=== PATIENT | female | born 1945 | race Caucasian/White ===

== ENCOUNTER → 2016-04-12 | Outpatient (CLI) | payer OTHER ==
[~2016-04-12] MED LIST: ADVAIR DISKUS; ALBU17IN INH; ASPIRIN PO; COUM2.5T11 PO; ECOT81TA2 PO; FENO160T10 PO; FENOFIBRATE PO; HYDR-3565 PO; LEVO175T2 PO; LEVOTHYROXINE PO; LISI40TAB PO; LISIPOW PO; LYRI75CA PO; MONT10TA2 PO; MONTELUKAST SOD PO; PAME10CA PO; PERCOCET PO; PRAV40TA2 PO; PRAVASTATIN PO; SYMB16INH INH; TYLE325T5 PO; VENTOLIN INHALER INH; VITA-130 PO; VITA100T20 PO
--- NOTE | 2016-04-12 14:30 | REP ---
Three-phase bone scan of the hips. History: Artificial hip joint on the right question loosening. Pain in the right hip radiating into the thigh. Comparison study is from June 10, 2009. Technique: 21.7 mCi technetium 99m MDP is injected and standard three-phase imaging was acquired. Scintigraphic findings: Anterior and posterior flow study is normal. Blood pool images show no area of regional hyperemia in or about either hip. Photopenia is seen from the right hip prosthetic components as before. Delayed scan images demonstrate this same photopenia in the right femoral head and subtrochanteric femur post hip replacement. There is no scintigraphic evidence to suggest loosening or infection. Signed by Osman Montoya MD 04/12/2016 02:21 P
== END | disposition home or self-care (01) ==
LOC: M RAD 10:40
PROVIDERS: ATTEND Orthopaedic Surgery
DX: Z96.641 Presence of right artificial hip joint (principal)
CPT/HCPCS: 78315; A9503

== ENCOUNTER → 2016-05-30 | Outpatient (CLI) | payer OTHER ==
[~2016-05-30] MED LIST changes: -ECOT81TA2 PO; +ECOT81TA5 PO; -HYDR-3565 PO; +HYDR-3719 PO
== END ==
LOC: M CARPUL 09:28
PROVIDERS: ATTEND Family Medicine
DX: J45.909 Unspecified asthma, uncomplicated (principal)

== ENCOUNTER → 2017-07-24 | Outpatient (REF) | payer OTHER ==
[2017-07-24 12:07] LABS: BASO # 0.1 10^3/uL (0.0-0.2); BASO % 1.3 % (0.0-1.0); EOS # 0.5 10^3/uL (0.0-0.50); EOS % 7.3 % (0.0-3.0); HEMATOCRIT 41.7 % (36.0-47.0); HEMOGLOBIN 13.8 g/dl (12.0-15.5); IMMATURE GRANULOCYTE % 0.1 % (0-3.0); LYMPH % 29.6 % (24.0-44.0); MEAN CORPUSCULAR HEMOGLOBIN 29.4 pg (27.0-33.0); MEAN CORPUSCULAR HGB CONC 33.1 g/dl (32.0-36.5); MEAN CORPUSCULAR VOLUME 88.9 fl (80.0-96.0); MONO # 0.7 10^3/uL (0.0-0.8); NEUTROPHILS # 3.5 10^3/uL (1.8-7.7); NEUTROPHILS % 51.7 % (36.0-66.0); PLATELET COUNT, AUTOMATED 331 10^3/uL (150-450); RED BLOOD COUNT 4.69 10^6/uL (4.00-5.40); RED CELL DISTRIBUTION WIDTH 11.9 % (11.5-14.5); WHITE BLOOD COUNT 6.7 10^3/uL (4.0-10.0)
[2017-07-24 13:41] LABS: ALBUMIN 3.6 GM/DL (3.2-5.2); ALBUMIN/GLOBULIN RATIO 1.29 (1.00-1.93); ALKALINE PHOSPHATASE 46 U/L (45-117); ALT/SGPT 21 U/L (12-78); ANION GAP 6 MEQ/L (8-16); AST/SGOT 13 U/L (7-37); BILIRUBIN,TOTAL 0.3 MG/DL (0.2-1.0); BLOOD UREA NITROGEN 20 MG/DL (7-18); CALCIUM LEVEL 8.6 MG/DL (8.8-10.2); CARBON DIOXIDE LEVEL 32 MEQ/L (21-32); CHLORIDE LEVEL 102 MEQ/L (98-107); CHOLESTEROL LEVEL 207 MG/DL (<200); CHOLESTEROL RISK RATIO 6.088 (<5); CREATININE FOR GFR 0.99 MG/DL (0.55-1.30); FREE T3 3.2 PG/ML (2.2-4.0); FREE T4 1.61 NG/DL (0.76-1.46); GLOMERULAR FILTRATION RATE 58.5 (>39); GLUCOSE, FASTING 99 MG/DL (70-100); HDL CHOLESTEROL 34 MG/DL (>40); LDL CHOLESTEROL 95.2 MG/DL (<100); NON-HDL-C 173 MG/DL; POTASSIUM SERUM 4.6 MEQ/L (3.5-5.1); SODIUM LEVEL 140 MEQ/L (136-145); THYROID STIMULATING HORMONE 0.069 uIU/ML (0.358-3.740); TOTAL PROTEIN 6.4 GM/DL (6.4-8.2); TRIGLYCERIDES LEVEL 389 MG/DL (<150)
[2017-07-24 14:21] LABS: ERYTHROCYTE SEDIMENTATION RATE 13 mm/hr (0-30)
== END ==
LOC: M LABDRAW1 10:05
DX: E03.9 Hypothyroidism, unspecified (principal); I10 Essential (primary) hypertension; M19.90 Unspecified osteoarthritis, unspecified site
CPT/HCPCS: 84443

== ENCOUNTER → 2017-10-30 | Outpatient (REF) | payer OTHER ==
[2017-10-30 16:36] LABS: FREE T3 2.1 PG/ML (2.2-4.0); FREE T4 1.13 NG/DL (0.76-1.46)
[2017-10-30 16:36] LABS: THYROID STIMULATING HORMONE 0.279 uIU/ML (0.358-3.740)
== END ==
LOC: M LABDRAW1 14:20
DX: E03.9 Hypothyroidism, unspecified (principal)
CPT/HCPCS: 84443

== ENCOUNTER → 2018-04-09 | Outpatient (REF) | payer MEDICARE ==
[~2018-04-09] MED LIST changes: -COUM2.5T11 PO; +COUM2.5T17 PO; -VITA-130 PO; +VITA500T PO
[2018-04-09 10:55] LABS: INR 0.92; PROTHROMBIN TIME 12.5 SECONDS (12.1-14.4)
== END ==
LOC: M LABDRAW1 09:40
PROVIDERS: ATTEND Orthopaedic Surgery
DX: Z01.812 Encounter for preprocedural laboratory examination (principal)

== ENCOUNTER → 2018-05-11 | Outpatient (CLI) | payer MEDICARE ==
[~2018-05-11] MED LIST changes: +ISOVUE-M 300 61% 15ML VIAL (Q9967) As Ordered ONE; +LIDOCAINE 1% MDV 20ML VIAL As Ordered ONE
--- NOTE | 2018-05-11 09:34 | REP ---
CT LUMBAR SPINE WITHOUT CONTRAST: HISTORY: Spondylosis. COMPARISON: MR 07/12/[address] 04/20/2015. CT was performed status post myelography. A diffuse disc bulge is present at the L1-2 level. There is minimal compression of the thecal sac. There is hypertrophy of the posterior articulating facets. The L1 nerves exit the neural foramina without compression. A diffuse disc bulge is present at the L2-3 level. There are 2 mm of retrolisthesis of L2 on 3. There is hypertrophy of the ligamenta flava and posterior articulating facets. These findings produce mild central canal stenosis. There is compression of the L2 nerves in the neural foramina. A diffuse disc bulge and small left paracentral disc extrusion are present at the L3-4 level. There is hypertrophy of the ligamenta flava and posterior articulating facets. These findings produce moderate central canal stenosis. There is compression of the L3 nerves in the neural foramina. A diffuse is disc bulge is present at the L4-5 level. There is hypertrophy of the ligamenta flava and posterior articulating facets. These findings produce minimal central canal stenosis. The L4 nerves exit the neural foramina without compression. A right laminectomy defect is present. A diffuse disc bulge is present at the L5-S1 level. There is hypertrophy of the ligamenta flava and posterior articulating facets. There are 4 mm of grade I spondylolisthesis of L5 on S1. These findings produce mild central canal stenosis. There is compression of the L5 nerves in the neural foramina. A right laminectomy defect is present. The lumbar intervertebral discs are decreased in height. Vacuum phenomenon is present. These findings are consistent with disc degeneration. IMPRESSION: 1. Diffuse disc bulge at the L1-2 level with minimal thecal sac compression. 2. Mild central canal stenosis at the L2-3 level secondary to disc bulge, ligamentous and facet hypertrophy, and retrolisthesis. There is compression of the L2 nerves in the neural foramina. The L2 nerve compression is a new finding. 3. Moderate central canal stenosis at the L3-4 level secondary to disc bulge, disc extrusion, ligamentous and facet hypertrophy. There is compression of the L3 nerves in the neural foramina. There has been progression of the canal stenosis. The L3 nerve compression is a new finding. 4. Minimal central canal stenosis at the L4-5 level secondary to disc bulge, ligamentous and facet hypertrophy. A right laminectomy defect is present. 5. Mild central canal stenosis at the L5-S1 level secondary to disc bulge, ligamentous and facet hypertrophy, and grade I spondylolisthesis. There is compression of the L5 nerves in the neural foramina. A right laminectomy defect is present. There is no other significant change. Electronically Signed by Ambrocio Tovar MD 05/11/2018 09:53 A
--- NOTE | 2018-05-11 17:58 | REP ---
LUMBAR MYELOGRAM The procedure was performed under the personal supervision of Dr. Montoya. The risks and benefits of the procedure were explained to the patient and informed consent was obtained. The L3-4 interspace was localized using fluoroscopic guidance. The skin was prepped and draped in a sterile fashion. 1% lidocaine was used as a local anesthetic. Using fluoroscopic guidance a 22-gauge spinal needle was inserted and advanced into the thecal sac. 10 ml of Isovue 300 was injected. Images obtained after injection show degenerative spondylosis changes with posterior osteophytic ridging and disc bulging at L4-5, L3-4, L2-3, L2 and T12-L1. There is an intrathecal nerve root compression bilaterally at L2-3 and to a lesser extent at L3-4. The patient was then taken to CT scan for postprocedural imaging. The patient tolerated the procedure well and there were no immediate complications. After the appropriate amount of monitored convalescence the patient was discharged from the department. 0.3 minutes of fluoroscopy time was utilized for this procedure. Reviewed by CHATO Allen 05/11/2018 03:48 P Electronically Signed by Osman Montoya MD 05/11/2018 05:49 P
== END ==
LOC: M RADPRO 07:05
PROVIDERS: ATTEND Orthopaedic Surgery
DX: M47.896 Other spondylosis, lumbar region (principal); M48.061 Spinal stenosis, lumbar region without neurogenic claudication; M51.26 Other intervertebral disc displacement, lumbar region
CPT/HCPCS: 62304; 72131; Q9967

== ENCOUNTER → 2018-07-06 | Outpatient (REF) | payer MEDICARE ==
[~2018-07-06] MED LIST changes: -ISOVUE-M 300 61% 15ML VIAL (Q9967) As Ordered ONE; -LIDOCAINE 1% MDV 20ML VIAL As Ordered ONE; +LISI40TA52 PO; -LISI40TAB PO; -VITA100T20 PO; +VITA100T51 PO
[2018-07-06 12:11] LABS: BASO # 0.1 10^3/uL (0.0-0.2); BASO % 1.1 % (0.0-1.0); EOS # 0.4 10^3/uL (0.0-0.50); EOS % 5.6 % (0.0-3.0); HEMOGLOBIN 14.3 g/dl (12.0-15.5); LYMPH # 1.9 10^3/uL (1.5-4.5); LYMPH % 25.9 % (24.0-44.0); MEAN CORPUSCULAR HGB CONC 32.5 g/dl (32.0-36.5); MEAN CORPUSCULAR VOLUME 92.2 fl (80.0-96.0); MONO # 0.6 10^3/uL (0.0-0.8); MONO % 8.4 % (0.0-5.0); NEUTROPHILS # 4.2 10^3/uL (1.8-7.7); NEUTROPHILS % 58.7 % (36.0-66.0); PLATELET COUNT, AUTOMATED 349 10^3/uL (150-450); RED BLOOD COUNT 4.77 10^6/uL (4.00-5.40); WHITE BLOOD COUNT 7.2 10^3/uL (4.0-10.0)
[2018-07-06 12:29] LABS: BILIRUBIN,TOTAL 0.4 MG/DL (0.2-1.0); CALCIUM LEVEL 8.9 MG/DL (8.8-10.2); CREATININE FOR GFR 1.01 MG/DL (0.55-1.30); FREE T3 2.1 PG/ML (2.2-4.0); FREE T4 1.33 NG/DL (0.76-1.46); POTASSIUM SERUM 4.1 MEQ/L (3.5-5.1); THYROID STIMULATING HORMONE 0.461 uIU/ML (0.358-3.740); TOTAL PROTEIN 6.6 GM/DL (6.4-8.2)
== END ==
LOC: M LABDRAW1 11:50
PROVIDERS: ATTEND Family Medicine
DX: E03.9 Hypothyroidism, unspecified (principal); I10 Essential (primary) hypertension

== ENCOUNTER → 2018-10-19 | Outpatient (REF) | payer MEDICARE ==
[2018-10-19 15:35] LABS: BASO # 0.1 10^3/uL (0.0-0.2); BASO % 0.7 % (0.0-1.0); EOS # 0.4 10^3/uL (0.0-0.50); EOS % 3.2 % (0.0-3.0); HEMATOCRIT 43.3 % (36.0-47.0); HEMOGLOBIN 13.7 g/dl (12.0-15.5); LYMPH # 2.4 10^3/uL (1.5-4.5); LYMPH % 18.2 % (24.0-44.0); MEAN CORPUSCULAR HEMOGLOBIN 30.1 pg (27.0-33.0); MEAN CORPUSCULAR HGB CONC 31.6 g/dl (32.0-36.5); MEAN CORPUSCULAR VOLUME 95.2 fl (80.0-96.0); MONO # 1.7 10^3/uL (0.0-0.8); MONO % 12.5 % (0.0-5.0); NEUTROPHILS # 8.6 10^3/uL (1.8-7.7); NEUTROPHILS % 64.6 % (36.0-66.0); PLATELET COUNT, AUTOMATED 360 10^3/uL (150-450); RED BLOOD COUNT 4.55 10^6/uL (4.00-5.40); WHITE BLOOD COUNT 13.3 10^3/uL (4.0-10.0)
[2018-10-19 16:04] LABS: ALBUMIN 3.2 GM/DL (3.2-5.2); BILIRUBIN,TOTAL 0.8 MG/DL (0.2-1.0); CALCIUM LEVEL 9.1 MG/DL (8.8-10.2); CREATININE FOR GFR 1.47 MG/DL (0.55-1.30); POTASSIUM SERUM 4.8 MEQ/L (3.5-5.1); TOTAL PROTEIN 6.4 GM/DL (6.4-8.2)
== END ==
LOC: M LABDRAW1 11:24
PROVIDERS: ATTEND Family Medicine
DX: R06.02 Shortness of breath (principal)

== ENCOUNTER → 2019-02-07 | Outpatient (REF) | payer MEDICARE ==
[2019-02-07 17:12] LABS: PLATELET COUNT, AUTOMATED 373 10^3/uL (150-450)
[2019-02-07 17:20] LABS: INR 1.03; PROTHROMBIN TIME 13.2 SECONDS (11.8-14.0)
== END ==
LOC: M LABDRAW1 15:43
PROVIDERS: ATTEND Physician Assistant
DX: M47.817 Spondylosis without myelopathy or radiculopathy, lumbosacral region (principal); Z01.812 Encounter for preprocedural laboratory examination; Z79.01 Long term (current) use of anticoagulants

== ENCOUNTER → 2019-08-30 | Outpatient (CLI) | payer MEDICARE ==
[~2019-08-30] MED LIST changes: +FLON1SPR NARES; +HYDR12.55 PO; +LEVO150T7 PO; +LISI40TA PO; -MONT10TA2 PO; +MONT10TA4 PO; +PROAAER10 INH; +VITA-243 PO; -VITA500T PO
[2019-08-30 12:44] LABS: HEMATOCRIT 42.2 % (36.0-47.0); HEMOGLOBIN 13.4 g/dl (12.0-15.5); MEAN CORPUSCULAR HEMOGLOBIN 29.6 pg (27.0-33.0); MEAN CORPUSCULAR HGB CONC 31.8 g/dl (32.0-36.5); MEAN CORPUSCULAR VOLUME 93.2 fl (80.0-96.0); PLATELET COUNT, AUTOMATED 382 10^3/uL (150-450); RED BLOOD COUNT 4.53 10^6/uL (4.00-5.40); WHITE BLOOD COUNT 8.3 10^3/uL (4.0-10.0)
[2019-08-30 13:49] LABS: ALBUMIN 3.7 GM/DL (3.2-5.2); BILIRUBIN,TOTAL 0.4 MG/DL (0.2-1.0); CALCIUM LEVEL 8.9 MG/DL (8.8-10.2); CHOLESTEROL RISK RATIO 5.272 (<5); CREATININE FOR GFR 1.07 MG/DL (0.55-1.30); GLOMERULAR FILTRATION RATE 53.2 (>39); POTASSIUM SERUM 4.6 MEQ/L (3.5-5.1); TOTAL PROTEIN 6.7 GM/DL (6.4-8.2)
== END ==
LOC: M LAB 11:16
PROVIDERS: ATTEND Physician Assistant
DX: Z01.818 Encounter for other preprocedural examination (principal); M16.12 Unilateral primary osteoarthritis, left hip; I25.10 Atherosclerotic heart disease of native coronary artery without angina pectoris; E78.2 Mixed hyperlipidemia; I51.7 Cardiomegaly; Z95.0 Presence of cardiac pacemaker

== ENCOUNTER → 2019-08-30 | Outpatient (CLI) | payer MEDICARE ==
--- NOTE | 2019-08-30 13:42 | REP ---
CHEST, TWO VIEWS: Two views of the chest are performed and compared to a prior study of 10/19/2018. There is no evidence of acute infiltrate with some very mild fibrotic changes in each lung base. There is mild cardiomegaly. There is calcification and tortuosity of the thoracic aorta. The mediastinal silhouette is unchanged. Multiple sternal wires are present and there is a dual-lead pacemaker. There are degenerative changes of the spine. IMPRESSION: Mild cardiomegaly with no acute infiltrate. Stable chronic changes. Electronically Signed by Wilmer Shankar MD 08/30/2019 03:55 P
== END ==
LOC: M LAB 11:11
PROVIDERS: ATTEND Orthopaedic Surgery
DX: Z01.818 Encounter for other preprocedural examination (principal); M16.12 Unilateral primary osteoarthritis, left hip; I51.7 Cardiomegaly; Z95.0 Presence of cardiac pacemaker

== ENCOUNTER → 2019-09-01 | Outpatient (CLI) | payer MEDICARE ==
[~2019-09-01] MED LIST changes: +ASPI81CH33 PO; +ATOR40TA75 PO; +PERC5TAB12 PO
== END ==
LOC: M LABSMTC 09:00
PROVIDERS: ATTEND Anesthesiology
DX: Z01.818 Encounter for other preprocedural examination (principal); Z11.59 Encounter for screening for other viral diseases

== ENCOUNTER 2019-09-04 07:30 | Inpatient (IN) | payer MEDICARE ==
--- NOTE | 2019-09-03 16:40 | HPE ---
DATE OF ADMISSION: 09/04/2019 HISTORY OF PRESENT ILLNESS: This is a pleasant 74-year-old female with continuing symptomatic left hip osteoarthritis. She consented for a left total hip arthroplasty per Dr. Wayne Verde. Medical optimization per Dr. Lorenz for primary care, and Dr. Falk from a cardiology standpoint. The patient denies any medical changes since her last meeting. Her x-rays are consistent with advanced left hip osteoarthritis. ALLERGIES: PENICILLIN, CONTRAST DYE hives, flushing, rash. MEDICATION LIST: Includes: - aspirin 81 mg orally once a day - chlorphthalidone 25 mg tablet half-tablet in the morning orally once a day - Breo Ellipta 100-25 mcg/INH aerosol powder breath activated 1 puff inhalation once a day - omeprazole 40 mg capsule delayed release one capsule orally once a day - metoclopramide HCl 10 mg tablet as directed orally twice a day as needed - fluticasone propionate 50 mcg/dose suspension one spray each nostril nasally once a day - albuterol sulfate 2.5 mg/3 mL 0.08% nebulization solution as directed inhalation every 2-4 hours as needed - Symbicort 160-4.5 mcg/ACT aerosol two puffs inhalation twice a day - Pravastatin sodium 40 mg tablet one tablet orally once a day - fenofibrate 150 mcg tablet one 1 tablet orally once a day - Singulair 10 mg tablet one tablet orally once a day as needed - Lisinopril 40 mg tablet one tablet orally once a day - cromolyn sodium 4% solution one drop into affected eye ophthalmic four times a day - levothyroxine sodium 150 mcg tablet one tablet on an empty stomach in the morning orally once a day - Ventolin HFA 108 (90 base) mcg 4/ACT aerosol solution inhalation two puffs by mouth every 4 hours as needed PAST MEDICAL HISTORY: Significant for left hip osteoarthritis. Coronary artery bypass graft (CABG) 07/2006, follows with [facility]. Hypertension. Hyperlipidemia. Hyperglyceridemia. Hypothyroidism. Sleep apnea. Asthma, mild, persistent. Colonoscopy, 10/2002, hyperplastic polyps. Declined update 02/01/2018. Declines mammogram DEXA. Tdap 10/2313. Flu vaccine 2015 at [facility]. Pacemaker 10/2014. PAST SURGICAL HISTORY: CABG, two-vessel, 2017. Back surgery 1997. Right hip replacement 1985. Mastoid surgery 1967. Left knee replacement, Dr. Mcdonald, 2013. Appendectomy 1979. Ear surgery at age 22. SOCIAL HISTORY: She quit smoking many years ago. Denies ethanol intake or illicit drugs. FAMILY HISTORY: Positive for coronary artery disease. REVIEW OF SYSTEMS: Denies chest pain, shortness of breath, dyspnea on exertion, fever, chills, upper respiratory or urinary tract symptoms. PHYSICAL EXAMINATION: Height 53 inches. Weight 202. Body mass index (BMI) of 35.8. Temperature 97.8. Blood pressure 120/76. Pulse 64. Respirations 18. She is pleasant, well-developed, well-nourished, obese female in no acute distress. Alert and oriented times three. Mood and affect are appropriate. Medical clearances were noted through primary care and cardiology. Chest x-ray, [facility] service, day 08/30/2019, mild cardiomegaly with no acute infiltrate as read by Dr. Shankar. EKG shows sinus rhythm with PVCs at 79 beats per minute (bpm). 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 ST-T abnormalities. Decreased activity but otherwise similar compared to 05/06/[address] Falk and Dulce Maria Joseph. LABORATORY RESULTS (by [facility]): Test EMILY 08/30/2019 shows MCHC 31.8, BUN 28, anion gap 5, triglycerides 277, cholesterol 232, cholesterol HDL ratio 5.272. Labs otherwise unremarkable from what I have available. IMPRESSION: 1. Left hip severe degenerative joint disease (DJD). 2. The patient consented for a left total hip arthroplasty per Dr. Wayne Verde. 3. Medical optimization per primary care, Dr. Lorenz and graining machine operator, Dr. Falk. 4. On-call to operating room (OR) 2 grams IV Kefzol in OR. 5. Sequential compressive device (SCD) and thromboembolism deterrents (TEDs) in OR.
[~2019-09-04] VITALS: Ht 160 cm; Wt 91.6 kg
[~2019-09-04 07:30] MED LIST changes: -ASPI81CH33 PO; -ATOR40TA75 PO; -PERC5TAB12 PO
[2019-09-04 10:30] LABS: INR 1.01
[2019-09-04] MEDS ORDERED: ATOR40TA75 PO (10:30)
[2019-09-04] MEDS ORDERED: CLINDAMYCIN INJ 900MG/6ML VIAL As Ordered ONE (12:36)
[2019-09-04] MEDS ORDERED: ceFAZolin SOD 2 GM in IV 1 EA IV ONE (12:45)
[2019-09-04] MEDS ORDERED: ACETAMINOPHEN 500 MG TAB PO ONE (12:45)
[2019-09-04] MEDS ORDERED: fentaNYL 100 MCG/2 ML INJECTION (J3010) As Ordered ONE (13:29)
[2019-09-04] MEDS ORDERED: propofoL 500 MG/50 ML VIAL As Ordered ONE (13:29)
[2019-09-04] MEDS ORDERED: PHENYLephrine HCL 500 MCG/5 ML (100MCG/ML) SYRINGE (J2370) As Ordered ONE ×3 (13:29→14:12)
[2019-09-04] MEDS ORDERED: MIDAZOLAM INJ 2MG/2ML VIAL (J2250 PER 1MG) As Ordered ONE (13:29)
[2019-09-04] MEDS ORDERED: fentaNYL 100 MCG/2 ML INJECTION (J3010) IV PRN (15:00)
[2019-09-04] MEDS ORDERED: ONDANSETRON 4MG/2ML VIAL IV PRN ×2 (15:00→15:15)
[2019-09-04] MEDS ORDERED: oxyCODONE 5MG TAB PO PRN (15:00)
[2019-09-04] MEDS ORDERED: HYDROMORPHONE HCL 0.5 MG/ 0.5 ML SYRINGE (J1170 PER 1) IV PRN (15:00)
[2019-09-04] MEDS ORDERED: LR 1,000 ML IV SCH ×2 (15:00→15:15)
[2019-09-04] MEDS ORDERED: PERCOCET 5MG/325MG TAB PO PRN (15:15)
[2019-09-04] MEDS ORDERED: ACETAMINOPHEN TAB 650MG DOSE (2X325MG) PO PRN (15:15)
[2019-09-04 16:00] VITALS: BP 123/66
--- NOTE | 2019-09-04 16:15 | REP ---
LEFT HIP: Three views left hip performed. There is placement of a total hip prosthesis. The prosthesis is in good position. The osseous structures are intact and well aligned. Metallic skin stone are seen laterally. Electronically Signed by Wilmer Shankar MD 09/05/2019 07:18 P
[2019-09-04] MEDS: MORPHINE 2 MG/ML 1ML VIAL (J2270) IV PRN ×2 (16:24→23:22)
[2019-09-04 16:30] VITALS: BP 119/67
[2019-09-04] MEDS ORDERED: ALBUTEROL 90 MCG/ACT 8GM HFA INHALER INH PRN (16:30)
[2019-09-04] MEDS: LR 1,000 ML IV SCH (16:45)
[2019-09-04 17:30] VITALS: BP 124/68
[2019-09-04] MEDS: PERCOCET 5MG/325MG TAB PO PRN (17:56)
[2019-09-04 18:30] VITALS: BP 71/49
[2019-09-04] MEDS ORDERED: LR 500 ML IV ONE (18:45)
[2019-09-04] MEDS ORDERED: SODIUM CHLORIDE 0.9% 1000ML IV ONE (18:45)
[2019-09-04] MEDS: SYMBICORT 160/4.5MCG INHALER 6GM INH SCH (19:32)
[2019-09-04 19:36] LABS: CK-MB VALUE MASS 2.5 NG/ML (<3.6); CPK CREATINE PHOSPHOKINASE 164 U/L (26-192); MB/CK RELATIVE INDEX 1.52 (< OR =4); TROPONIN I < 0.02 NG/ML (< 0.10)
--- NOTE | 2019-09-04 19:40 | HPEPDOC ---
General Date of Admission Sep 04, 2019 at 09:42 Date of Service: Sep 04, 2019 Chief Complaint The patient is a 74-year-old female admitted with a reason for visit of Left Hip Osteoarthritis. History of Present Illness Consultation report: Consultation requested by Dr Wayne Chisholm Consultation for management of medical commorbidities. HPI: This is a pleasant 74-year-old female with PMH of CAD s/p CABG, Pacemaker for second degree A-V block, hypertension, hyperlipidemia, Asthma, GERD, admitted for elective left total hip arthroplasty for advanced left hip osteoarthritis. Hospitalist is consulted for management of medical commorbidities. Patient complained of left hip pain dull achcing and burning about 6/10 in intensity without any radiation. Home Medications Scheduled Aspirin (Ecotrin) 81 Mg Tab, 81 MG PO DAILY, (Reported) Atorvastatin Calcium (Atorvastatin Calcium) 40 Mg Tablet, 40 MG PO DAILY, (Reported) Budesonide/Formoterol (Symbicort 160-4.5 Mcg Inhaler) 60 Puff/Inhaler Aers, 2 PUFF INH BID, (Reported) Fenofibrate (Fenofibrate) 160 Mg Tab, 160 MG PO DAILY, (Reported) Fluticasone Propionate (Flonase Allergy Relief) 9.9 Ml [place].susp, 2 SPRAYS NARES DAILY, (Reported) Hydrochlorothiazide (Hydrochlorothiazide) 12.5 Mg Tablet, 12.5 MG PO DAILY, (Reported) Levothyroxine Sodium (Levothyroxine Sodium) 150 Mcg Tablet, 150 MCG PO DAILY, (Reported) Lisinopril (Lisinopril) 40 Mg Tablet, 40 MG PO DAILY, (Reported) Scheduled PRN Albuterol Sulfate (Proair Hfa) 8.5 Gm Hfa.aer.ad, 2 PUFF INH for SHORTNESS OF BREATH, (Reported) Allergies Coded Allergies: Contrast Media (Verified Allergy, Unknown, 10/24/14) Penicillins (Verified Allergy, Unknown, 09/04/19) Sulfa (Sulfonamide Antibiotics) (Verified Allergy, Unknown, 09/04/19) red dye (Verified Allergy, Unknown, 09/04/19) Past Medical History Medical History Significant for left hip osteoarthritis. Coronary artery bypass graft (CABG) 07/2006 Hypertension. Hyperlipidemia. Hypothyroidism. Sleep apnea. Asthma, mild, persistent. Colonoscopy, 10/2002, hyperplastic polyps. 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 Pacemaker placement Back surgery 1997. Right hip replacement 1985. Mastoid surgery 1967. Left knee replacement, Dr. Mcdonald, 2013. Appendectomy 1979. Ear surgery at age 22. Family History Significant Family History: Diabetes (sisters), Heart disease (mother ), Hypertension (all siblings) Social History * Smoker: Denies Alcohol: Denies Drugs: denies A-FIB/CHADSVASC A-FIB History Current/History of A-Fib/PAF?: No Review of Systems Constitutional: Denies: Chills, Fever, Night Sweats Eyes: Denies: Pain, Vision change ENT: Denies: Head Aches, Ear Pain, Dysphagia Skin: Denies: Rash, Lesions, Breakdown Pulmonary: Denies: Dyspnea, Cough Cardiovascular: Denies: Chest Pain, Palpitations, Orthopnea, Paroxysmal Noc. Dyspnea, Lt Headedness Gastrointestinal: Denies: Nausea, Vomiting, Abdominal Pain, Diarrhea Genitourinary: Denies: Dysuria, Frequency, Incontinence, Retention Hematologic: Denies: Bruising, Bleeding Excessively Musculoskeletal: Reports: Joint Pain Physical Examination General Exam: Positive: Alert, Cooperative, No Acute Distress Eye Exam: Positive: PERRLA, Conjunctiva & lids normal, EOMI; Negative: Sclera icteric ENT Exam: Positive: Atraumatic, Mucous membr. moist/pink, Pharynx Normal Neck Exam: Positive: Supple; Negative: JVD, thyromegaly Chest Exam: Positive: Clear to auscultation, Normal air movement Heart Exam: Positive: Rate Normal, Regular Rhythm, Normal S1, Normal S2; Negative: Murmurs, Rubs Abdomen Exam: Positive: Normal bowel sounds, Soft; Negative: Tenderness, Hepatospenomegaly Extremity Exam: Positive: Normal pulses; Negative: Clubbing, Cyanosis, Edema Skin Exam: Positive: Nl turgor and temperature; Negative: Breakdown, Lesion Vital Signs Vital Signs Date Time Temp Pulse Resp B/P (MAP) Pulse Ox O2 Delivery O2 Flow Rate FiO2 09/04/19 10:31 97.0 82 20 180/94 (122) 96 Room Air Laboratory Data Labs 24H Laboratory Tests 2 09/04/19 10:02: Erythrocyte Sedimentation Rate 7, Prothrombin Time 13.0, Prothromb Time International Ratio 1.01 Assessment/Plan This is a pleasant 74-year-old female with PMH of CAD s/p CABG, Pacemaker for second degree A-V block, hypertension, hyperlipidemia, Asthma, GERD, admitted for elective left total hip arthroplasty for advanced left hip osteoarthritis. Hospitalist is consulted for management of medical commorbidities. Left total hip arthroplasty pain control and dvt prophylaxis as per ortho PT/OT, bowel regimen. Hypertension home meds will hold for now, BP soft. Asthma replace breo with symbicort, albuterol prn Hyperlipidemia statin and fenofibrate Hypothyroid synthroid FORREST/ obesity never used CPAP FORREST protocol CAD s/p CABG no issues at present, continue betablocker, statin. GERD omeprazole Plan / VTE VTE Prophylaxis Ordered?: Yes VICENTE FRANCO MD Sep 04, 2019 14:56
[2019-09-04 19:44] VITALS: BP 133/62
[2019-09-04] MEDS: ATORVASTATIN 20 MG TAB PO SCH (20:12)
[2019-09-04] MEDS: ceFAZolin SOD 2 GM in IV 1 EA IV SCH (20:12)
[2019-09-04] MEDS: ASPIRIN 81 MG ENTERIC TAB PO SCH (20:12)
--- NOTE | 2019-09-04 20:30 | REPVR ---
PROCEDURE INFORMATION: Exam: XR Chest, 1 View Exam date and time: 09/04/2019 8:13 PM Age: 74 years old Clinical indication: Shortness of breath; Additional info: SOB, post op TECHNIQUE: Imaging protocol: XR of the chest Views: 1 view. COMPARISON: CR Chest, 2 view PA, Lat 08/30/2019 11:43 AM FINDINGS: Tubes, catheters and devices: Left approach dual lead pacemaker. Lungs: There is opacification at the left lung base which may represent atelectasis/infiltrates. Pleural space: Unremarkable. No pleural effusion. No pneumothorax. Heart/Mediastinum: Unremarkable. No cardiomegaly. Bones/joints: Sternal wires. IMPRESSION: Opacification at the left lung base which may represent atelectasis/infiltrates. Electronically signed by: Ronny Mcgill On 09/04/2019 20:30:24 PM
[2019-09-04 20:42] LABS: HEMATOCRIT 35.9 % (36.0-47.0); HEMOGLOBIN 11.6 g/dl (12.0-15.5); MEAN CORPUSCULAR HEMOGLOBIN 30.4 pg (27.0-33.0); MEAN CORPUSCULAR HGB CONC 32.3 g/dl (32.0-36.5); PLATELET COUNT, AUTOMATED 285 10^3/uL (150-450); RED BLOOD COUNT 3.82 10^6/uL (4.00-5.40); WHITE BLOOD COUNT 17.5 10^3/uL (4.0-10.0)
[2019-09-05 01:34] LABS: CK-MB VALUE MASS 3.8 NG/ML (<3.6); MB/CK RELATIVE INDEX 1.31 (< OR =4); TROPONIN I 0.02 NG/ML (< 0.10)
[2019-09-05 02:37] VITALS: BP 126/63
[2019-09-05] MEDS: LR 1,000 ML IV SCH ×2 (02:45→09:58)
[2019-09-05 05:14] VITALS: BP 113/54
[2019-09-05] MEDS: PERCOCET 5MG/325MG TAB PO PRN ×5 (05:16→23:03)
[2019-09-05] MEDS: LEVOTHYROXINE 150MCG TABLET (0.15MG) PO SCH (05:16)
[2019-09-05] MEDS: ceFAZolin SOD 2 GM in IV 1 EA IV SCH ×2 (05:16→12:21)
[2019-09-05] MEDS ORDERED: PERCOCET 5MG/325MG TAB PO PRN (06:30)
[2019-09-05] MEDS ORDERED: ASPI81CH33 PO (06:49)
[2019-09-05] MEDS ORDERED: PERC5TAB12 PO (06:49)
[2019-09-05 07:01] LABS: BASO # 0.1 10^3/uL (0.0-0.2); BASO % 0.4 % (0.0-1.0); EOS # 0.4 10^3/uL (0.0-0.5); HEMATOCRIT 33.5 % (36.0-47.0); HEMOGLOBIN 10.8 g/dl (12.0-15.5); LYMPH # 1.1 10^3/uL (1.5-5.0); LYMPH % 9.6 % (24.0-44.0); MEAN CORPUSCULAR HEMOGLOBIN 30.5 pg (27.0-33.0); MEAN CORPUSCULAR HGB CONC 32.2 g/dl (32.0-36.5); MEAN CORPUSCULAR VOLUME 94.6 fl (80.0-96.0); MONO # 1.1 10^3/uL (0.0-0.8); MONO % 9.8 % (0.0-5.0); NEUTROPHILS # 8.8 10^3/uL (1.5-8.5); NEUTROPHILS % 76.8 % (36.0-66.0); PLATELET COUNT, AUTOMATED 281 10^3/uL (150-450); RED BLOOD COUNT 3.54 10^6/uL (4.00-5.40); WHITE BLOOD COUNT 11.5 10^3/uL (4.0-10.0)
[2019-09-05 07:23] LABS: CREATININE FOR GFR 1.37 MG/DL (0.55-1.30); POTASSIUM SERUM 5.5 MEQ/L (3.5-5.1)
[2019-09-05] MEDS: SYMBICORT 160/4.5MCG INHALER 6GM INH SCH ×2 (07:30→19:55)
[2019-09-05] MEDS: ALBUTEROL SULFATE 2.5 MG/0.5 ML INH NEB SOLN NEB PRN ×3 (07:34→23:16)
--- NOTE | 2019-09-05 08:09 | REP ---
Clinical: Hypoxia. Comparison: 09/04/2019. Findings: Mediastinum and cardiac silhouette are stable. Subtle left basilar atelectasis and possible small pleural reaction cannot be excluded. Remainder of lung jones are relatively well aerated and clear. Impression: Cannot exclude trace left basilar atelectasis and small left pleural reaction. Electronically Signed by Wale Castaneda MD 09/05/2019 08:00 A
--- NOTE | 2019-09-05 08:45 | ECGEPIP ---
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 Spontaneous AV conduction with first-degree AV block Right axis deviation with right bundle branch block Primary inferoapical ST/T wave abnormalities. Reduced ventricular pacing from 10/24/14 Electronically Signed on 09-05-2019 8:45:21 EDT by Chico Alejo
[2019-09-05] MEDS: MIRALAX *UNIT DOSE* 17GM PACKET PO SCH (08:51)
[2019-09-05] MEDS: MOM 30ML SUSPENSION UDC PO SCH (08:51)
[2019-09-05] MEDS: ASPIRIN 81 MG ENTERIC TAB PO SCH ×2 (08:52→20:23)
[2019-09-05] MEDS ORDERED: SOD POLYSTYRENE SULFONATE SUSP 15 GM/60 ML UD PO ONE (09:00)
--- NOTE | 2019-09-05 11:08 | IPNPDOC ---
Text Note Date of Service The patient was seen on 09/05/19. NOTE Subjective: Patient was seen and examined at the bedside. Patient reports that they're doing well. They deny any chest pain, palpitations or cough. They do report some shortness of breath that they attribute to asthma. They deny nausea, vomiting, abdominal pain, diarrhea or urinary discomfort. Patient has been working with physical therapy for discharge today. Objective: Vitals (See below) General: Sitting up in chair, appears comfortable, AAOx3 HEENT: NC, AT CVS: +S1S2 Lungs: Fair air entry b/l, mild wheezing appreciated bilaterally. No rhonchi or crackles Abdomen: Soft, ND, NT Extremities: - Edema, - Calf tenderness Assessment and plan: Left total hip arthroplasty (POD#1) - Patient reports improvement of left hip pain - Pain control, anticoagulation, physical therapy as per orthopedic team Elevated Cr on CKD3 - Baseline Cr of 1.1-1.4 - Will discontinue HCTZ at this time - Will have outpatient follow up with PCP within 7 days. Hypertension - BP was on lower limits on 09/03 - Will discontinue HCTZ on discharge - c/w Lisinopril Asthma - Mild wheezing appreciated this morning - Was found to be experiencing some shortness of breath, however, had resolved after receiving nebulization therapy - CXR 09/04: Cannot exclude trace left basilar atelectasis and small left pleural reaction. - c/w inhaled therapy as ordered - c/w incentive spirometry Hyperlipidemia - c/w Atorvastatin and Fenofibrate on discharge Hypothyroid - c/w Levothyroxine FORREST/ obesity - Has not been on a CPAP - on FORREST protocol sandrine CAD s/p CABG - Remains asymptomatic - c/w Atorvastatin, ASA DVT prophylaxis - c/w full anticoagulation as per orthopedic surgery VS,Fishbone, I+O VS, Fishbone, I+O Laboratory Tests 09/04/19 19:36 09/05/19 06:40 Vital Signs Date Time Temp Pulse Resp B/P (MAP) Pulse Ox O2 Delivery O2 Flow Rate FiO2 09/05/19 09:22 18 Room Air 09/05/19 05:14 99.4 66 113/54 (73) 97 1.0 I&O- Last 24 Hours up to 6 AM 09/05/19 06:00 Intake Total 2680 ml Output Total 875 ml Balance 1805 ml LAROSE,VIJESH MD Sep 05, 2019 11:08
[2019-09-05] MEDS ORDERED: MAALOX 30 ML SUSP *UDC PO PRN (14:00)
[2019-09-05 14:30] VITALS: BP 128/62
[2019-09-05 20:00] VITALS: O2SAT 97
[2019-09-05] MEDS: ATORVASTATIN 20 MG TAB PO SCH (20:24)
[2019-09-05 22:00] VITALS: BP 127/64
[2019-09-06] MEDS: LEVOTHYROXINE 150MCG TABLET (0.15MG) PO SCH (04:58)
[2019-09-06] MEDS: PERCOCET 5MG/325MG TAB PO PRN (04:59)
[2019-09-06 06:00] VITALS: BP 146/74
[2019-09-06 07:03] LABS: BASO # 0.1 10^3/uL (0.0-0.2); BASO % 0.5 % (0.0-1.0); EOS # 0.6 10^3/uL (0.0-0.5); EOS % 4.9 % (0.0-3.0); HEMATOCRIT 32.6 % (36.0-47.0); HEMOGLOBIN 10.5 g/dl (12.0-15.5); LYMPH # 1.2 10^3/uL (1.5-5.0); MEAN CORPUSCULAR HGB CONC 32.2 g/dl (32.0-36.5); MEAN CORPUSCULAR VOLUME 93.1 fl (80.0-96.0); MONO # 1.3 10^3/uL (0.0-0.8); NEUTROPHILS # 8.5 10^3/uL (1.5-8.5); NEUTROPHILS % 73.2 % (36.0-66.0); PLATELET COUNT, AUTOMATED 304 10^3/uL (150-450); WHITE BLOOD COUNT 11.7 10^3/uL (4.0-10.0)
[2019-09-06 07:30] LABS: CREATININE FOR GFR 1.22 MG/DL (0.55-1.30); GLOMERULAR FILTRATION RATE 45.7 (>39); MAGNESIUM LEVEL 1.9 MG/DL (1.8-2.4)
[2019-09-06] MEDS: SYMBICORT 160/4.5MCG INHALER 6GM INH SCH (07:35)
[2019-09-06] MEDS: ALBUTEROL SULFATE 2.5 MG/0.5 ML INH NEB SOLN NEB PRN (07:35)
[2019-09-06] MEDS: MIRALAX *UNIT DOSE* 17GM PACKET PO SCH (08:32)
[2019-09-06] MEDS: ASPIRIN 81 MG ENTERIC TAB PO SCH (08:32)
[2019-09-06] MEDS: MOM 30ML SUSPENSION UDC PO SCH (08:32)
[2019-09-06] MEDS ORDERED: LISI40TA PO (11:12)
--- NOTE | 2019-09-06 11:14 | IPNPDOC ---
Text Note Date of Service The patient was seen on 09/06/19. NOTE Subjective: Patient was seen and examined at the bedside. She reports that she's been significantly better today and is ready to go home. She denies chest pain, kathryn rtness breath, palpitations. Has been up and ambulating. Objective: Vitals (See below) General: Lying in bed, appears comfortable, oriented to person, place and time HEENT: NC, AT CVS: +S1S2 Lungs: Air entry fair bilaterally, without any auscultated rhonchi, crackles or wheezing Abdomen: Soft, nondistended and nontender Extremities: Lower extremities are free of any pitting edema, - Calf tenderness Assessment and plan: Left total hip arthroplasty (POD#2) - Patient reports improvement of left hip pain - Pain control, anticoagulation, physical therapy as per orthopedic team Elevated Cr on CKD3 - Baseline Cr of 1.1-1.4 - Will discontinue HCTZ - Reduce dose of Lisinopril - Will have outpatient follow up with PCP within 7 days. s/p Hyperkalemia - Has improved this morning - s/p Kayexalate - Will reduce dose of Lisinopril Hypertension - BP was on lower limits on 09/03 - Will discontinue HCTZ on discharge (re: Elevated Cr) - c/w Lisinopril ad adjusted dose Asthma - No evidence of exacerbation at this time - Was found to be experiencing some shortness of breath, however, had resolved after receiving nebulization therapy - CXR 09/04: Cannot exclude trace left basilar atelectasis and small left pleural reaction. - c/w inhaled therapy as ordered - c/w incentive spirometry Hyperlipidemia - c/w Atorvastatin and Fenofibrate on discharge Hypothyroid - c/w Levothyroxine FORREST/ obesity - Has not been on a CPAP - on FORREST protocol currenlty CAD s/p CABG - Remains asymptomatic - c/w Atorvastatin, ASA DVT prophylaxis - c/w full anticoagulation as per orthopedic surgery VS,Fishbone, I+O VS, Fishbone, I+O Laboratory Tests 09/06/19 06:33 Vital Signs Date Time Temp Pulse Resp B/P (MAP) Pulse Ox O2 Delivery O2 Flow Rate FiO2 09/06/19 06:00 99.3 105 19 146/74 (98) 96 Nasal Cannula 1.0 I&O- Last 24 Hours up to 6 AM 09/06/19 06:00 Intake Total 1180 ml Output Total 800 ml Balance 380 ml VENITA LAROSE MD Sep 06, 2019 11:14
--- NOTE | 2019-09-10 06:46 | RO ---
DATE OF PROCEDURE: 09/04/2019 PREPROCEDURE DIAGNOSIS: Left hip degenerative arthritis. POSTPROCEDURE DIAGNOSIS: Left hip degenerative arthritis. PROCEDURE: Left total hip arthroplasty using a Size 5 standard [place] stem with a +5 neck, 36 mm ball, and a 54 mm Gription Sector cup with a neutral 36 mm liner. SURGEON: Dr. Placido Vered LACING STRING CUTTER: Dulce Maria Youssef ANESTHESIA: Spinal. COMPLICATIONS: None. ESTIMATED BLOOD LOSS: 200 mL. SPECIMEN: Femoral head. PROCEDURE: Antibiotics were given intravenously preoperatively and a successful spinal anesthetic was induced. Then she was placed in the lateral decubitus position with the [place] hip positioner utilized. The left hip uppermost, the down leg well padded, especially the peroneal nerve. Axillary roll was utilized. The left hip area was carefully prepped and draped in the usual sterile fashion. Then, after appropriate time out, a longitudinal incision was made for a direct lateral approach to the hip. Bovie cautery was used to coagulate the crossing vessels down to the tensor fascia which was then divided in line with the skin incision. Then we split the underlying gluteus medius and gluteus minimus in the anterior 1/3 posterior 2/3 junction. Then split the underlying gluteus minimus and then anterior hip capsule. Then carefully dissected off the proximal femur as we externally rotated the hip and eventually dislocated it anteriorly and placed it into a leg bag. The piriformis fossa was identified, starter reamer placed, followed by the canal finding reamer and then the lateralizing reamer. Then, we eventually reamed up to size 5. Femoral neck osteotomy was performed using the guide. Then, we began broaching up to a size 5. We then exposed the acetabulum. We performed a labral excision 360 degrees. We then began reaming, beginning at 48 mm and advanced to 53. The trial 54 fit nicely, but I did ask for the Sector cup just in case there was some play in the cup. We copiously pulsatile lavage irrigated out the hip joint and did it several times throughout the surgery. Then, implanted the real 54 Sector cup and used the extramedullary alignment jig to help estimate our abduction and version. It seated well. There was good fixation. I did not feel supplemental screw fixation was needed. We irrigated and then placed the real polyethylene liner and then made sure it was seated properly. We copiously irrigated again and then exposed the proximal femur, irrigated out the femoral canal and placed a #5 broach. Then we trialed with a 1.5 and a +5 standard offset and the +5 gave her the best stability in terms of soft tissue telescoping. The cup was noted to be in good position. It was very stable to flexion and internal rotation with adduction as well as with external rotation and extension. Thus, I felt the +5 was the proper size. We then removed all the trial components, copiously pulsatile lavage irrigated out the femoral canal once again. Then, placed the real #5 [place] stem, dried the trunnion, placed the 36 ball and made sure it was seated properly and then reduced the hip. Again, she was very stable to flexion and internal rotation and extension and external rotation. We copiously irrigated again and then began closing the anterior hip capsule and the gluteus minimus back anatomically with interrupted #1 PDS suture. We then closed the gluteus medius back anatomically with several interrupted #1 PDS sutures, irrigating between layers. We closed the tensor fascia with a combination of running #1 PDS and running #1 Stratafix. We irrigated between layers once again. Closed the deep subdermal tissues with interrupted #2-0 PDS suture. The skin was closed with stone, covered by Optifoam dressing and dry sterile bulky dressing. She was then turned supine and then transferred to the recovery room in stable condition. There were no intraoperative complications. Ms. Dulce Maria Youssef, my PA, was critical to the success of this difficult procedure by helping to appropriately manipulate the leg, help with appropriate soft tissue retraction, help to close the wound, help to prepare the patient, amongst many other tasks to allow me to perform the operation smoothly, efficiently and safely.
== END 2019-09-06 12:30 | disposition home or self-care (01) | DRG 470 ==
LOC: M OR 09:42 → M MS5PR 16:08
PROVIDERS: ADMIT Orthopaedic Surgery; ATTEND Orthopaedic Surgery
PROC: 0SRB02Z Replacement of Left Hip Joint with Metal on Polyethylene Synthetic Substitute, Open Approach (ICD-10-PCS; principal; 2019-09-04 12:35)
DX: M16.12 Unilateral primary osteoarthritis, left hip (principal); I45.3 Trifascicular block; I25.10 Atherosclerotic heart disease of native coronary artery without angina pectoris; I12.9 Hypertensive chronic kidney disease with stage 1 through stage 4 chronic kidney disease, or unspecified chronic kidney disease; E78.5 Hyperlipidemia, unspecified; E78.1 Pure hyperglyceridemia; E03.9 Hypothyroidism, unspecified; G47.33 Obstructive sleep apnea (adult) (pediatric); J45.30 Mild persistent asthma, uncomplicated; Z86.010 Personal history of colon polyps; Z95.0 Presence of cardiac pacemaker; N18.3 Chronic kidney disease, stage 3 (moderate); E87.5 Hyperkalemia; E66.9 Obesity, unspecified; Z11.59 Encounter for screening for other viral diseases; Z96.641 Presence of right artificial hip joint; Z96.652 Presence of left artificial knee joint; Z90.49 Acquired absence of other specified parts of digestive tract; Z87.891 Personal history of nicotine dependence; Z68.35 Body mass index [BMI] 35.0-35.9, adult; Z79.82 Long term (current) use of aspirin; Z79.899 Other long term (current) drug therapy; Z88.0 Allergy status to penicillin; Z88.2 Allergy status to sulfonamides; Z91.041 Radiographic dye allergy status; Z91.048 Other nonmedicinal substance allergy status

== ENCOUNTER → 2019-12-10 | Outpatient (CLI) | payer SELFPAY ==
[~2019-12-10] MED LIST changes: +ASPI81CH33 PO; +ATOR40TA75 PO; +PERC5TAB12 PO
== END ==
LOC: M LABSMTC 09:35
PROVIDERS: ATTEND Pediatrics
DX: Z11.59 Encounter for screening for other viral diseases (principal)

== ENCOUNTER → 2020-07-29 | Outpatient (REF) | payer MEDICARE ==
[~2020-07-29] MED LIST changes: -LISI40TA PO; +LISI40TA4 PO; +MONT10TA10 PO; -MONT10TA4 PO
[2020-07-29 14:28] LABS: HEMATOCRIT 41.2 % (36.0-47.0); HEMOGLOBIN 13.3 g/dl (12.0-15.5); MEAN CORPUSCULAR HEMOGLOBIN 30.9 pg (27.0-33.0); MEAN CORPUSCULAR HGB CONC 32.3 g/dl (32.0-36.5); MEAN CORPUSCULAR VOLUME 95.6 fl (80.0-96.0); PLATELET COUNT, AUTOMATED 355 10^3/uL (150-450); RED BLOOD COUNT 4.31 10^6/uL (4.00-5.40); WHITE BLOOD COUNT 8.2 10^3/uL (4.0-10.0)
[2020-07-29 15:04] LABS: ALBUMIN 3.9 GM/DL (3.2-5.2); BILIRUBIN,TOTAL 0.5 MG/DL (0.2-1.0); CALCIUM LEVEL 9.9 MG/DL (8.8-10.2); CHOLESTEROL RISK RATIO 3.278 (<5); CREATININE FOR GFR 1.03 MG/DL (0.55-1.30); GLOMERULAR FILTRATION RATE 55.5 (>39); POTASSIUM SERUM 4.5 MEQ/L (3.5-5.1); TOTAL PROTEIN 6.6 GM/DL (6.4-8.2)
== END ==
LOC: M LABDRWAD 13:01
PROVIDERS: ATTEND Physician Assistant
DX: Z00.00 Encounter for general adult medical examination without abnormal findings (principal); E78.00 Pure hypercholesterolemia, unspecified

== ENCOUNTER → 2020-09-15 | Outpatient (CLI) | payer MEDICARE ==
--- NOTE | 2020-09-16 08:18 | REP ---
INDICATION: ESSENTIAL HYPERTENSION COMPARISON: 09/05/2019 TECHNIQUE: PA and lateral. FINDINGS: Mediastinum and cardiac silhouette are stable. Cardiomegaly is again noted along with prior sternotomy and pacemaker. Mild/chronic pulmonary vascular congestion cannot be excluded. No obvious focal consolidation or effusion. No pneumothorax. Skeletal structures stable. IMPRESSION: Cardiomegaly and chronic stable changes may reflect mild chronic pulmonary vascular congestion. If the patient remains/becomes symptomatic consider chest CT for further investigation. <Electronically signed by Wale Castaneda > 09/16/20 0801
== END ==
LOC: M ADAMS 10:42
PROVIDERS: ATTEND Family Medicine
DX: I10 Essential (primary) hypertension (principal)

== ENCOUNTER → 2020-10-12 | Outpatient (REF) | payer MEDICARE ==
[2020-10-12 17:36] LABS: CREATININE FOR GFR 1.08 MG/DL (0.55-1.30); GLOMERULAR FILTRATION RATE 52.5 (>39); POTASSIUM SERUM 4.6 MEQ/L (3.5-5.1)
== END ==
LOC: M LABDRWAD 16:12
PROVIDERS: ATTEND Family Medicine
DX: R06.02 Shortness of breath (principal)

== ENCOUNTER → 2020-11-18 | Outpatient (REF) | payer MEDICARE | LOC: M LAB REF 16:39 | PROVIDERS: ATTEND Nurse Practitioner Adult Health | DX: R05 Cough (principal) ==

== ENCOUNTER 2020-11-25 15:25 | Inpatient (IN) | payer MEDICARE ==
[~2020-11-25] VITALS: Ht 167.6 cm; Wt 89.2 kg
[~2020-11-25 15:25] MED LIST changes: +FLON1SPR; -FLON1SPR NARES
[2020-11-25] MEDS: COMBIVENT RESPIMAT 100-20MCG INHALER 4GM INH SCH ×3 (17:30→18:01)
[2020-11-25 17:40] LABS: BASO % 0.2 % (0.0-1.0); EOS % 0.1 % (0.0-3.0); HEMATOCRIT 44.4 % (36.0-47.0); HEMOGLOBIN 14.2 g/dl (12.0-15.5); LYMPH # 0.5 10^3/uL (1.5-5.0); LYMPH % 5.1 % (24.0-44.0); MEAN CORPUSCULAR HEMOGLOBIN 30.2 pg (27.0-33.0); MEAN CORPUSCULAR VOLUME 94.5 fl (80.0-96.0); MONO # 0.7 10^3/uL (0.0-0.8); MONO % 6.4 % (2.0-8.0); NEUTROPHILS # 9.1 10^3/uL (1.5-8.5); NEUTROPHILS % 87.3 % (36.0-66.0); PLATELET COUNT, AUTOMATED 398 10^3/uL (150-450); WHITE BLOOD COUNT 10.4 10^3/uL (4.0-10.0)
[2020-11-25 17:48] LABS: ALBUMIN 3.6 GM/DL (3.2-5.2); BILIRUBIN,DIRECT 0.2 MG/DL (0.0-0.2); BILIRUBIN,TOTAL 0.4 MG/DL (0.2-1.0); CALCIUM LEVEL 8.6 MG/DL (8.8-10.2); CK-MB VALUE MASS 2.2 NG/ML (<3.6); CREATININE FOR GFR 1.93 MG/DL (0.55-1.30); GLOMERULAR FILTRATION RATE 26.9 (>39); MB/CK RELATIVE INDEX 6.67 (< OR =4); POTASSIUM SERUM 5.2 MEQ/L (3.5-5.1); THYROID STIMULATING HORMONE 1.02 uIU/ML (0.358-3.740); TOTAL PROTEIN 6.6 GM/DL (6.4-8.2); TROPONIN I 0.02 NG/ML (< 0.10)
[2020-11-25 18:28] LABS: RSV AMPLIFICATION NEGATIVE (NEGATIVE)
--- NOTE | 2020-11-25 18:39 | REP ---
INDICATION: DYSPNEA/COUGH. COMPARISON: Comparison chest x-ray September 15, 2020. TECHNIQUE: Two views.. FINDINGS: EKG monitoring electrodes overlie the chest. Heart is moderately enlarged unchanged. The thoracic aorta is calcific and tortuous. Median sternotomy wires are again noted. EKG electrodes are seen. No infiltrate is observed in the lung jones. The pleural angles are sharp. Degenerative changes are seen in the thoracic spine. Pulmonary vasculature is not increased. IMPRESSION: Cardiomegaly with pacemaker, prior sternotomy. Otherwise no acute disease. <Electronically signed by Glenn Montoya > 11/25/20 [id number]
[2020-11-25] MEDS ORDERED: ACETAMINOPHEN TAB 650MG DOSE (2X325MG) PO PRN (20:15)
[2020-11-25] MEDS ORDERED: ALBUTEROL SULFATE 2.5 MG/0.5 ML INH NEB SOLN NEB ONE (20:20)
[2020-11-25] MEDS ORDERED: FUROSEMIDE 20MG/2ML VIAL (J1940) IV ONE ×2 (20:40→20:45)
[2020-11-25] MEDS ORDERED: methylPREDNISolone 125MG 2ML VIAL IV STA (20:42)
[2020-11-25] MEDS ORDERED: ALBUTEROL SULFATE 2.5 MG/0.5 ML INH NEB SOLN NEB PRN (20:45)
[2020-11-25] MEDS ORDERED: ALBUTEROL 90 MCG/ACT 8GM HFA INHALER INH PRN (20:45)
--- NOTE | 2020-11-25 20:57 | HPEPDOC ---
General Date of Admission Nov 25, 2020 at 20:39 Date of Service: Nov 25, 2020 Chief Complaint The patient is a 75-year-old female admitted with a reason for visit of Shortness Of Breath. Source: Patient, Old records Exam Limitations: Other (Patient memory) Timing/Duration: Getting worse, Other (Chronic, worsening over past 6 months) Associated Symptoms: Cough History of Present Illness Patient is a very pleasant 75 year old female with history of COPD, CAD s/p CABG, pacemaker for 2nd degree AV block sent to ER via ambulance from pulmonary office due to worsening dyspnea and pulse ox of 85% on room air in pulmonary office. Patient said that she has chronic dyspnea, exertional dyspnea, orthopnea, and paroxysmal nocturnal dyspnea for skilled nursing, worsening in the past 6 months. She said that her dyspnea worsens with being supine and with exertion, alleviates with resting still, sitting up, and using albuterol inhalers. She said she is compliant on all her medications; unable to recall if there is any recent medication changes. She has clear cough with sputum; no hemoptysis. She said her usual weight is about 200lbs. She has no recent sick or covid contact, and has no recent travel history. Home Medications Scheduled Aspirin (Aspirin EC) 81 Mg Tablet.dr, 81 MG PO DAILY, (Reported) Atorvastatin Calcium (Atorvastatin Calcium) 40 Mg Tablet, 40 MG PO DAILY, (Reported) Budesonide/Formoterol (Symbicort 160-4.5 Mcg Inhaler) 60 Puff/Inhaler Aers, 2 PUFF INH BID, (Reported) Docusate Sodium (Docusate Sodium) 100 Mg Capsule, 100 MG PO DAILY, (Reported) Fenofibrate (Fenofibrate) 160 Mg Tab, 160 MG PO DAILY, (Reported) Fluticasone Propionate (Flonase Allergy Relief) 9.9 Ml [place].susp, 1 SPRAY NA DAILY, (Reported) Furosemide (Furosemide) 20 Mg Tablet, 20 MG PO DAILY, (Reported) Levothyroxine Sodium (Levothyroxine Sodium) 150 Mcg Tablet, 150 MCG PO DAILY, (Reported) Lisinopril (Lisinopril) 40 Mg Tablet, 40 MG PO DAILY, (Reported) Montelukast Sodium (Montelukast Sodium) 10 Mg Tablet, 10 MG PO DAILY, (Reported) Prednisone (Prednisone) 10 Mg Tablet, 10 MG PO TAPER, (Reported) 40MG FOR 4 DAYS, 30MG FOR 4 DAYS, 20MG FOR 4 DAYS, 10MG FOR 4 DAYS. CURRENTLY ON 30MG. UNSURE OF WHAT DAY. Umeclidinium Dix (Incruse Ellipta) 62.5 Mcg Blst.w.dev, 1 PUFF INH DAILY, (Reported) Scheduled PRN Albuterol Sulf (Albuterol Sulfate) 2.5 Mg/3 Ml Vial.neb, 2.5 MG INH Q2H PRN for SHORTNESS OF BREATH, (Reported) Albuterol Sulfate (Proair Hfa) 8.5 Gm Hfa.aer.ad, 2 PUFF INH Q4H PRN for SHORTNESS OF BREATH, (Reported) Allergies Coded Allergies: Contrast Media (Verified Allergy, Unknown, 10/24/14) Penicillins (Verified Allergy, Unknown, 09/04/19) Sulfa (Sulfonamide Antibiotics) (Verified Allergy, Unknown, 09/04/19) red dye (Verified Allergy, Unknown, 09/04/19) Past Medical History Medical History Aortic stenosis CABG 07/2006 Hypertension Hyperlipidemia Hypothyroidism Sleep apnea Asthma, mild, persistent Mobitz type 2 second degree heart block s/p pacemaker placement Surgical History Appendectomy 1979 Right hip placement 1985 Mastoid surgery 1967 Ear surgery at age 22 Back surgery [address] Mcdonald, 2013 Pacemaker placement 10/2014 CABG 2006 and 2016 Left hip surgery August 2019 Family History Sister: type 1 dibaetes mellitus Mother: heart disease(angina) All ibslings have hypertension Social History * Smoker: former Smoker Alcohol: occationally Drugs: denies Recent Travel/Sick Contacts: Denies: Recent travel, Recent sick contacts Reported to live by herself at home A-FIB/CHADSVASC A-FIB History Current/History of A-Fib/PAF?: No Review of Systems Constitutional: Denies: Chills, Fever, Weight Loss ENT: Denies: Ear Pain, Sinus Congestion, Post Nasal Drip Skin: Denies: Rash, Lesions, Breakdown Pulmonary: Reports: Dyspnea, Cough Cardiovascular: Reports: Orthopnea, Paroxysmal Noc. Dyspnea; Denies: Chest Pain, Palpitations, Edema, Lt Headedness Gastrointestinal: Denies: Nausea, Vomiting, Abdominal Pain, Diarrhea, Constipation, Hematochezia Genitourinary: Denies: Dysuria, Frequency, Incontinence, Retention Hematologic: Denies: Bleeding Excessively Neurological: Denies: Weakness, Numbness Psych: Reports: Mood Normal Physical Examination General Exam: Positive: Alert, Cooperative, Mild Distress Eye Exam: Positive: Conjunctiva & lids normal ENT Exam: Positive: Atraumatic Neck Exam: Positive: Supple, Other (Mild hepatojugular reflux); Negative: JVD Chest Exam: Positive: Rales, Wheezing, Other (Labored breathing with accessory muscle use) Heart Exam: Positive: Rate Normal, Murmurs Abdomen Exam: Positive: Normal bowel sounds, Soft; Negative: Tenderness Extremity Exam: Negative: Edema, Swelling Skin Exam: Positive: Nl turgor and temperature; Negative: Breakdown Neuro Exam: Positive: Normal Speech Psych Exam: Positive: Mood NL, Oriented x 3 Vital Signs Vital Signs Date Time Temp Pulse Resp B/P (MAP) Pulse Ox O2 Delivery O2 Flow Rate FiO2 11/25/20 18:55 88 95 11/25/20 18:45 21 170/88 (115) Nasal Cannula 1.0 11/25/20 15:42 97.0 Laboratory Data Labs 24H Laboratory Tests 2 11/25/20 16:21: Immature Granulocyte % (Auto) 0.9, Neutrophils (%) (Auto) 87.3H, Lymphocytes (%) (Auto) 5.1L, Monocytes (%) (Auto) 6.4, Eosinophils (%) (Auto) 0.1, Basophils (%) (Auto) 0.2, Neutrophils # (Auto) 9.1H, Lymphocytes # (Auto) 0.5L, Monocytes # (Auto) 0.7, Eosinophils # (Auto) 0.0, Basophils # (Auto) 0.0, Nucleated Red Blood Cells % (auto) 0.0, Anion Gap 2L, Glomerular Filtration Rate 26.9L, Calcium Level 8.6L, Total Bilirubin 0.4, Direct Bilirubin 0.2, Aspartate Amino Transf (AST/SGOT) 12, Alanine Aminotransferase (ALT/SGPT) 20, Alkaline Phosphatase 32L, Total Creatine Kinase 33, Creatine Kinase MB 2.2, Creatine Kinase MB Relative Index 6.67H, Troponin I 0.02, OT-Nte-Y-Type Natriuretic Peptide 05788U, Total Protein 6.6, Albumin 3.6, Albumin/Globulin Ratio 1.2, Thyroid Stimulating Hormone (TSH) 1.020 11/25/20 17:25: Coronavirus (COVID-19)(PCR) NEGATIVE, Influenza Type A (RT-PCR) NEGATIVE, Influenza Type B (RT-PCR) NEGATIVE, Respiratory Syncytial Virus (PCR) NEGATIVE 11/25/20 17:38: POC pH (Misc Panel) 7.399, POC Base Excess (Misc Panel) 14.0H, POC Saturated Percent O2 (Misc) 93L, POC pO2 (Misc Panel) 69.0L, POC pCO2 (Misc Panel) 62.1*H, POC HCO3 (Misc Panel) 38.3H, POC Total CO2 (Misc Panel) 40.0H CBC/BMP Laboratory Tests 11/25/20 16:21 Assessment/Plan 1. Respiratory distress with respiratory acidosis, likely COPD exacerbation from undiagnosed COPD and/or CHF exacerbation -Decreased air movement. Labored breathing with dyspnea alleviated by albuterol. 125mg solumedrol now followed by 80mg solumedrol Q8H -Meeting Outing's criteria, CXR demonstrated cardiomegaly. Give total dose of IV lasix 40mg now followed by 40mg IV lasix BID. Echo ordered -Per old records she has FORREST not on CPAP; patient is to continue FORREST work-up outpatient -Rule out [place]. First troponin<0.02, trend troponin. Wells criteria is 0 and given chronic dyspnea thus PE unlikely -Continuous pulse ox, oxygen therapy, and inhalers with symbicort and albuterol 2. Chronic compensated respiratory acidosis with metabolic alkalosis, likely due to left heart failure and/or COPD exacerbation -CO2 62.1, HCO3 38.3, PH 7.399 -if no improvement with current treatment and worsening respiratory distress, consider NIPPV -COPD diet 3. Acute kidney injury likely due to cardiorenal syndrome -IV lasix 40mg once, followed by 40mg IV lasix BID. -monitor BMP -will have the patient on Heparin for DVT prophylaxis due to decreased GFR 4. Hypertension -hold home Lisinopril due to LANCE -Patient will be on IV lasix -monitor BP 5. Hypothyroidism -Continue home me levothyroxine 6. Hyperlipidemia -Continue home med Atorvastatin and fenofibrate 7. History of CAD s/p CABG -continue home med atorvastatin and aspirin DVT prophylaxis: heparin SC Plan / VTE VTE Prophylaxis Ordered?: Yes Plan Disposition Pending respiratory distress improvement GME ATTESTATION GME ATTESTATION My faculty preceptor for this patient encounter was physically present during the encounter and was fully available. All aspects of the patient interview, examination, medical decision making process, and medical care plan development were reviewed and approved by the faculty preceptor. The faculty preceptor is aware and concurs with the plan as stated in the body of this note and will attest to such by his/her cosignature. GME ATTESTATION GME ATTESTATION My faculty preceptor for this patient encounter was physically present during the encounter and was fully available. All aspects of the patient interview, examination, medical decision making process, and medical care plan development were reviewed and approved by the faculty preceptor. The faculty preceptor is aware and concurs with the plan as stated in the body of this note and will attest to such by his/her cosignature. ATTENDING NOTE IRoopa, have independently examined this patient and performed my own phy sical exam, as well as reviewed the documentation and edited where necessary. I have discussed in detail with the resident / student the findings and plan of treatment as documented by the resident / student and edited their note. I agree with their findings and treatment plan and have edited their documentation. I will continue to follow the patient during this hospital stay. MELIZA HALL DO Nov 25, 2020 20:57 HEATHER FUNK MD Nov 26, 2020 06:49
[2020-11-25] MEDS ORDERED: HEPARIN SOD (PORCINE) 5000UNITS/ML 1ML VIAL/SYRINGE SC SCH (21:30)
[2020-11-25] MEDS ORDERED: FUROSEMIDE 40MG/4ML VIAL (J1940) IV ONE (21:45)
[2020-11-25] MEDS ORDERED: LISI40TA4 PO (21:46)
[2020-11-25] MEDS ORDERED: FURO20TA2 PO (21:46)
[2020-11-25] MEDS ORDERED: ALBU83IN INH (21:46)
[2020-11-25] MEDS ORDERED: PRED10TA2 PO (21:46)
[2020-11-25] MEDS ORDERED: DOCU100C16 PO (21:46)
[2020-11-25] MEDS ORDERED: INCR1INH INH (21:46)
[2020-11-25] MEDS ORDERED: MONT10TA10 PO (21:46)
[2020-11-25] MEDS ORDERED: ASPI-161 PO (22:28)
[2020-11-25] MEDS ORDERED: HOME MED LIST COMPLETE! XX SCH (22:30)
[2020-11-25 23:00] VITALS: BP 138/94
[2020-11-26] VITALS (16 sets, daily range): BP systolic 120–159; BP diastolic 68–84; O2SAT 84–95
[2020-11-26 01:02] LABS: CALCIUM LEVEL 8.5 MG/DL (8.8-10.2); CREATININE FOR GFR 1.41 MG/DL (0.55-1.30); GLOMERULAR FILTRATION RATE 38.6 (>39); POTASSIUM SERUM 4.2 MEQ/L (3.5-5.1); TROPONIN I 0.03 NG/ML (< 0.10)
[2020-11-26] MEDS: LEVOTHYROXINE 150MCG TABLET (0.15MG) PO SCH (05:40)
[2020-11-26] MEDS: HEPARIN SOD (PORCINE) 5000UNITS/ML 1ML VIAL/SYRINGE SC SCH ×3 (05:40→23:20)
[2020-11-26] MEDS ORDERED: methylPREDNISolone 125MG 2ML VIAL IV SCH (06:00)
[2020-11-26 06:25] LABS: HEMATOCRIT 48.4 % (36.0-47.0); HEMOGLOBIN 15.2 g/dl (12.0-15.5); MEAN CORPUSCULAR HGB CONC 31.4 g/dl (32.0-36.5); MEAN CORPUSCULAR VOLUME 95.7 fl (80.0-96.0); PLATELET COUNT, AUTOMATED 385 10^3/uL (150-450); RED BLOOD COUNT 5.06 10^6/uL (4.00-5.40)
[2020-11-26 06:57] LABS: CALCIUM LEVEL 8.5 MG/DL (8.8-10.2); CREATININE FOR GFR 1.31 MG/DL (0.55-1.30); POTASSIUM SERUM 4.6 MEQ/L (3.5-5.1); TROPONIN I 0.02 NG/ML (< 0.10)
[2020-11-26] MEDS: SYMBICORT 160/4.5MCG INHALER 6GM INH SCH ×2 (07:20→19:27)
[2020-11-26] MEDS: TIOTROPIUM INHALER/CAPSULE (SPIRIVA) INH SCH (08:00)
[2020-11-26] MEDS: LEVALBUTEROL 1.25 MG/0.5 ML CONCENTRATE NEB INH SCH ×4 (08:00→19:27)
[2020-11-26] MEDS: ASPIRIN 81MG ENTERIC TABLET PO SCH (08:05)
[2020-11-26] MEDS: MONTELUKAST 10 MG TAB PO SCH (08:05)
[2020-11-26] MEDS: FENOFIBRATE 145 MG TAB (TRICOR) PO SCH (08:05)
[2020-11-26] MEDS: ATORVASTATIN 20 MG TAB PO SCH (08:05)
[2020-11-26] MEDS: FUROSEMIDE 40MG/4ML VIAL (J1940) IV SCH ×2 (08:06→20:01)
[2020-11-26] MEDS ORDERED: ENOXAPARIN 30MG/0.3ML SYRINGE (J1650 PER 10MG) SC SCH (09:00)
[2020-11-26] MEDS ORDERED: FUROSEMIDE 40MG/4ML VIAL (J1940) IV SCH (09:00)
[2020-11-26] MEDS: methylPREDNISolone 125MG 2ML VIAL IV SCH ×3 (14:13→23:20)
[2020-11-26] MEDS: FLUTICASONE PROP 0.05% NASAL SPRAY 16 GM (FLONASE) SCH (14:13)
--- NOTE | 2020-11-26 15:03 | IPNPDOC ---
Subjective Date Seen The patient was seen on 11/26/20. Subjective Chief Complaint/HPI Feels better this afternoon. Says shortness of breath is better Objective Physical Examination General Exam: Positive: Alert, Cooperative, Mild Distress Eye Exam: Positive: Conjunctiva & lids normal ENT Exam: Positive: Atraumatic Neck Exam: Positive: Supple, Other (Mild hepatojugular reflux); Negative: JVD Chest Exam: Positive: Rales, Wheezing Heart Exam: Positive: Rate Normal, Regular Rhythm, Normal S1, Normal S2 Abdomen Exam: Positive: Normal bowel sounds, Soft, Other (obese abdomen); Negative: Tenderness Extremity Exam: Negative: Edema, Swelling Skin Exam: Positive: Nl turgor and temperature; Negative: Breakdown Neuro Exam: Positive: Normal Speech, Strength at 5/5 X4 ext, Normal Tone Psych Exam: Positive: Memory Intact, Oriented x 3 Assessment /Plan Assessment Patient is a very pleasant 75 year old female with history of COPD, CAD s/p CABG, 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 Acute respiratory failure with hypoxia and hypercarbia due to COPD exacerbation continue symbicort, spiriva levalbuterol, methyl prednisone Acute kidney injury likely due to cardiorenal syndrome due to CHF exacerbation continue lasix CHF exacerbation will get echo continue lasix Hypertension hold home Lisinopril due to LANCE Patient will be on IV lasix monitor BP Hypothyroidism Continue home levothyroxine Hyperlipidemia Continue home med Atorvastatin and fenofibrate History of CAD s/p CABG continue home med atorvastatin and aspirin FORREST May use own CPAP Plan/VTE VTE Prophylaxis Ordered?: Yes VS, I&O, 24H, Fishbone Vital Signs/I&O Vital Signs Date Time Temp Pulse Resp B/P (MAP) Pulse Ox O2 Delivery O2 Flow Rate FiO2 11/26/20 04:00 96.7 101 21 159/84 (109) 96 Nasal Cannula 3.0 I&O- Last 24 Hours up to 6 AM 11/26/20 06:00 Intake Total 680 ml Balance 680 ml Laboratory Data 24H LABS Laboratory Tests 2 11/25/20 16:21: Immature Granulocyte % (Auto) 0.9, Neutrophils (%) (Auto) 87.3H, Lymphocytes (%) (Auto) 5.1L, Monocytes (%) (Auto) 6.4, Eosinophils (%) (Auto) 0.1, Basophils (%) (Auto) 0.2, Neutrophils # (Auto) 9.1H, Lymphocytes # (Auto) 0.5L, Monocytes # (Auto) 0.7, Eosinophils # (Auto) 0.0, Basophils # (Auto) 0.0, Nucleated Red Blood Cells % (auto) 0.0, Anion Gap 2L, Glomerular Filtration Rate 26.9L, Calcium Level 8.6L, Total Bilirubin 0.4, Direct Bilirubin 0.2, Aspartate Amino Transf (AST/SGOT) 12, Alanine Aminotransferase (ALT/SGPT) 20, Alkaline Phosphatase 32L, Total Creatine Kinase 33, Creatine Kinase MB 2.2, Creatine Kinase MB Relative Index 6.67H, Troponin I 0.02, FY-Hul-Z-Type Natriuretic Peptide 91891V, Total Protein 6.6, Albumin 3.6, Albumin/Globulin Ratio 1.2, Thyroid Stimulating Hormone (TSH) 1.020 11/25/20 17:25: Coronavirus (COVID-19)(PCR) NEGATIVE, Influenza Type A (RT-PCR) NEGATIVE, Influenza Type B (RT-PCR) NEGATIVE, Respiratory Syncytial Virus (PCR) NEGATIVE 11/25/20 17:38: POC pH (Misc Panel) 7.399, POC Base Excess (Misc Panel) 14.0H, POC Saturated Percent O2 (Misc) 93L, POC pO2 (Misc Panel) 69.0L, POC pCO2 (Misc Panel) 62.1*H, POC HCO3 (Misc Panel) 38.3H, POC Total CO2 (Misc Panel) 40.0H 11/26/20 00:09: Anion Gap 0L, Glomerular Filtration Rate 38.6L, Calcium Level 8.5L, Troponin I 0.03# 11/26/20 05:56: Nucleated Red Blood Cells % (auto) 0.0, Anion Gap 0L, Glomerular Filtration Rate 42.0, Calcium Level 8.5L, Troponin I 0.02# CBC/BMP Laboratory Tests 11/25/20 16:21 11/26/20 00:09 11/26/20 05:56 Danna Butler MD Nov 26, 2020 07:42
[2020-11-26] MEDS ORDERED: SLF 3 ML SYR IV PRN (15:50)
--- NOTE | 2020-11-26 18:48 | ECGEPIP ---
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
[2020-11-26] MEDS: SLF 3 ML SYR IV SCH (23:20)
[2020-11-27] VITALS (19 sets, daily range): BP systolic 128–139; BP diastolic 68–94; O2SAT 84–96
[2020-11-27] MEDS: LEVALBUTEROL 1.25 MG/0.5 ML CONCENTRATE NEB INH SCH ×7 (04:17→23:52)
[2020-11-27 05:34] LABS: HEMATOCRIT 46.6 % (36.0-47.0); HEMOGLOBIN 14.4 g/dl (12.0-15.5); MEAN CORPUSCULAR HEMOGLOBIN 30.1 pg (27.0-33.0); MEAN CORPUSCULAR HGB CONC 30.9 g/dl (32.0-36.5); MEAN CORPUSCULAR VOLUME 97.5 fl (80.0-96.0); PLATELET COUNT, AUTOMATED 345 10^3/uL (150-450); RED BLOOD COUNT 4.78 10^6/uL (4.00-5.40); WHITE BLOOD COUNT 9.3 10^3/uL (4.0-10.0)
[2020-11-27] MEDS: methylPREDNISolone 125MG 2ML VIAL IV SCH ×4 (05:49→23:34)
[2020-11-27] MEDS: LEVOTHYROXINE 150MCG TABLET (0.15MG) PO SCH (05:49)
[2020-11-27] MEDS: HEPARIN SOD (PORCINE) 5000UNITS/ML 1ML VIAL/SYRINGE SC SCH ×3 (05:49→21:05)
[2020-11-27] MEDS: SLF 3 ML SYR IV SCH ×3 (05:50→21:08)
[2020-11-27 05:55] LABS: CALCIUM LEVEL 8.3 MG/DL (8.8-10.2); CREATININE FOR GFR 1.35 MG/DL (0.55-1.30); GLOMERULAR FILTRATION RATE 40.6 (>39); POTASSIUM SERUM 4.7 MEQ/L (3.5-5.1)
[2020-11-27] MEDS: TIOTROPIUM INHALER/CAPSULE (SPIRIVA) INH SCH (07:10)
[2020-11-27] MEDS: SYMBICORT 160/4.5MCG INHALER 6GM INH SCH ×2 (07:10→19:22)
[2020-11-27] MEDS: ATORVASTATIN 20 MG TAB PO SCH (08:56)
[2020-11-27] MEDS: FENOFIBRATE 145 MG TAB (TRICOR) PO SCH (08:56)
[2020-11-27] MEDS: ASPIRIN 81MG ENTERIC TABLET PO SCH (08:57)
[2020-11-27] MEDS: FUROSEMIDE 40MG/4ML VIAL (J1940) IV SCH (08:57)
[2020-11-27] MEDS: FLUTICASONE PROP 0.05% NASAL SPRAY 16 GM (FLONASE) SCH (09:03)
[2020-11-27] MEDS: MONTELUKAST 10 MG TAB PO SCH (09:03)
--- NOTE | 2020-11-27 10:33 | IPNPDOC ---
Subjective Date Seen The patient was seen on 11/27/20. Subjective Chief Complaint/HPI Feels much better though continues to have a hacking cough. No phlegm production. Still on 1 L of oxygen. She does require more oxygen during sleep due to FORREST Objective Physical Examination General Exam: Positive: Alert, Cooperative, No Acute Distress Eye Exam: Positive: Conjunctiva & lids normal ENT Exam: Positive: Atraumatic Neck Exam: Positive: Supple, Other (Mild hepatojugular reflux); Negative: JVD Chest Exam: Positive: Rales, Wheezing Heart Exam: Positive: Rate Normal, Regular Rhythm, Normal S1, Normal S2 Abdomen Exam: Positive: Normal bowel sounds, Soft, Other (obese abdomen); Negative: Tenderness Extremity Exam: Negative: Edema, Swelling Skin Exam: Positive: Nl turgor and temperature; Negative: Breakdown Neuro Exam: Positive: Normal Speech, Strength at 5/5 X4 ext, Normal Tone Psych Exam: Positive: Memory Intact, Oriented x 3 Assessment /Plan Assessment Patient is a very pleasant 75 year old female with history of COPD, CAD s/p CABG, 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 Acute respiratory failure with hypoxia and hypercarbia due to COPD exacerbation continue symbicort, spiriva levalbuterol, methyl prednisone Acute kidney injury likely due to cardiorenal syndrome due to CHF exacerbation continue lasix CHF exacerbation Fluid restriction 2 L echo done report pending continue torsemide Hypertension held home Lisinopril due to LANCE Continue torsemide monitor BP Hypothyroidism Continue home levothyroxine Hyperlipidemia Continue home med Atorvastatin and fenofibrate History of CAD s/p CABG continue home med atorvastatin and aspirin FORREST May use own CPAP Plan/VTE VTE Prophylaxis Ordered?: Yes VS, I&O, 24H, Fishbone Vital Signs/I&O Vital Signs Date Time Temp Pulse Resp B/P (MAP) Pulse Ox O2 Delivery O2 Flow Rate FiO2 11/27/20 09:00 85 Nasal Cannula 1.0 11/27/20 08:00 97.1 100 18 132/93 (106) I&O- Last 24 Hours up to 6 AM 11/27/20 05:59 Intake Total 1070 ml Output Total 2150 ml Balance -1080 ml Laboratory Data 24H LABS Laboratory Tests 2 11/27/20 04:50: Nucleated Red Blood Cells % (auto) 0.0, Anion Gap 5L, Glomerular Filtration Rate 40.6, Calcium Level 8.3L CBC/BMP Laboratory Tests 11/27/20 04:50 Danna Butler MD Nov 27, 2020 10:32
[2020-11-27] MEDS ORDERED: TORSEMIDE 20 MG TAB PO SCH (17:00)
[2020-11-28] VITALS (11 sets, daily range): BP systolic 139–144; BP diastolic 91–93; O2SAT 88–98
[2020-11-28] MEDS: LEVALBUTEROL 1.25 MG/0.5 ML CONCENTRATE NEB INH SCH ×4 (04:02→15:31)
[2020-11-28 04:05] LABS: HEMATOCRIT 44.9 % (36.0-47.0); HEMOGLOBIN 14.2 g/dl (12.0-15.5); MEAN CORPUSCULAR HEMOGLOBIN 30.2 pg (27.0-33.0); MEAN CORPUSCULAR HGB CONC 31.6 g/dl (32.0-36.5); MEAN CORPUSCULAR VOLUME 95.5 fl (80.0-96.0); PLATELET COUNT, AUTOMATED 322 10^3/uL (150-450); WHITE BLOOD COUNT 8.8 10^3/uL (4.0-10.0)
[2020-11-28 04:24] LABS: CALCIUM LEVEL 8.4 MG/DL (8.8-10.2); CREATININE FOR GFR 1.66 MG/DL (0.55-1.30); POTASSIUM SERUM 4.6 MEQ/L (3.5-5.1)
[2020-11-28] MEDS: LEVOTHYROXINE 150MCG TABLET (0.15MG) PO SCH (05:17)
[2020-11-28] MEDS: methylPREDNISolone 125MG 2ML VIAL IV SCH (05:18)
[2020-11-28] MEDS: HEPARIN SOD (PORCINE) 5000UNITS/ML 1ML VIAL/SYRINGE SC SCH ×2 (05:19→14:00)
[2020-11-28] MEDS: SLF 3 ML SYR IV SCH ×2 (05:19→14:00)
[2020-11-28] MEDS: TIOTROPIUM INHALER/CAPSULE (SPIRIVA) INH SCH (07:36)
[2020-11-28] MEDS: SYMBICORT 160/4.5MCG INHALER 6GM INH SCH (07:36)
[2020-11-28] MEDS: ATORVASTATIN 20 MG TAB PO SCH (08:11)
[2020-11-28] MEDS: FENOFIBRATE 145 MG TAB (TRICOR) PO SCH (08:11)
[2020-11-28] MEDS: MONTELUKAST 10 MG TAB PO SCH (08:11)
[2020-11-28] MEDS: ASPIRIN 81MG ENTERIC TABLET PO SCH (08:11)
[2020-11-28] MEDS ORDERED: TORSEMIDE 20 MG TAB PO SCH (09:00)
[2020-11-28] MEDS ORDERED: FURO20TA2 PO (09:53)
[2020-11-28] MEDS ORDERED: AMLO1TAB25 PO (09:57)
[2020-11-28] MEDS ORDERED: PRED10TA2 PO (09:58)
--- NOTE | 2020-11-28 10:14 | DS.PDOC ---
Discharge Summary General Date of Admission Nov 25, 2020 at 20:39 Date of Discharge 11/28/20 Discharge Summary PROCEDURES PERFORMED DURING STAY: [None]. DISCHARGE DIAGNOSES: Acute respiratory failure with hypoxia and hypercarbia COPD /asthma exacerbation CHF exacerbation echo pending Acute kidney injury SECONDARY DIAGNOSIS: Coronary artery bypass graft (CABG) 07/2006 Hypertension Hypothyroid Hyperlipidemia CAD status post CABG FORREST Pacemaker in place due to Mobitz type II second-degree heart block Osteoarthritis status post bilateral hip replacement and left knee replacement, right knee arthroscopy and meniscal repair Asthma, mild, persistent. Colonoscopy, 10/2002, hyperplastic polyps. Pacemaker 10/2014 due to Mobitz type 2 second degree heart block Back surgery 1997. Hiatal hernia Hemorrhoids COMPLICATIONS/CHIEF COMPLAINT: Shortness Of Breath. HOSPITAL COURSE: Patient is a very pleasant 75 year old female with history of COPD, CAD s/p CABG, 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 Acute respiratory failure with hypoxia and hypercarbia due to COPD exacerbation/asthma exacerbation Improving continue symbicort, Incruse, albuterol, prednisone taper Acute kidney injury likely due to cardiorenal syndrome due to CHF exacerbation continue lasix CHF exacerbation Fluid restriction 2 L echo done report pending continue Lasix 40 mg daily Hypertension Stopped lisinopril due to LANCE Continue Lasix We will start amlodipine Hypothyroidism Continue home levothyroxine Hyperlipidemia Continue home med Atorvastatin and fenofibrate History of CAD s/p CABG continue home med atorvastatin and aspirin FORREST Reports does not have a CPAP Patient is requiring 2 to 3 L of oxygen during sleep DISCHARGE MEDICATIONS: Please see below. ALLERGIES: Please see below. PHYSICAL EXAMINATION ON DISCHARGE: VITAL SIGNS: Please see below. General Exam: Positive: Alert, Cooperative, No Acute Distress Eye Exam: Positive: Conjunctiva & lids normal ENT Exam: Positive: Atraumatic Neck Exam: Positive: Supple, Other (Mild hepatojugular reflux); Negative: JVD Chest Exam: Positive: Rales, Wheezing Heart Exam: Positive: Rate Normal, Regular Rhythm, Normal S1, Normal S2 Abdomen Exam: Positive: Normal bowel sounds, Soft, Other (obese abdomen); Negative: Tenderness Extremity Exam: Negative: Edema, Swelling Skin Exam: Positive: Nl turgor and temperature; Negative: Breakdown Neuro Exam: Positive: Normal Speech, Strength at 5/5 X4 ext, Normal Tone Psych Exam: Positive: Memory Intact, Oriented x 3 LABORATORY DATA: Please see below. IMAGING: CXR: EKG monitoring electrodes overlie the chest. Heart is moderately enlarged unchanged. The thoracic aorta is calcific and tortuous. Median sternotomy wires are again noted. EKG electrodes are seen. No infiltrate is observed in the lung jones. The pleural angles are sharp. Degenerative changes are seen in the thoracic spine. Pulmonary vasculature is not increased. IMPRESSION: Cardiomegaly with pacemaker, prior sternotomy. Otherwise no acute disease. ACTIVITY: [As tolerated]. DIET: 2 g sodium 2 L fluid restriction DISCHARGE PLAN: Home DISCHARGE INSTRUCTIONS: Follow-up with PMD in 1 week Follow-up with pulmonary in 2 to 3 weeks ITEMS TO FOLLOWUP ON ON OUTPATIENT: Follow-up final echo result DISCHARGE CONDITION: [Stable]. TIME SPENT ON DISCHARGE: 35 minutes. Vital Signs/I&Os Vital Signs Date Time Temp Pulse Resp B/P (MAP) Pulse Ox O2 Delivery O2 Flow Rate FiO2 11/28/20 08:00 96.9 105 18 144/91 (108) 97 Nasal Cannula 2.0 I&O- Last 24 Hours up to 6 AM 11/28/20 06:00 Intake Total 1040 ml Output Total 2150 ml Balance -1110 ml Laboratory Data Labs 24H Laboratory Tests 2 11/28/20 03:26: Nucleated Red Blood Cells % (auto) 0.0, Anion Gap 2L, Glomerular Filtration Rate 32.0L, Calcium Level 8.4L CBC/BMP Laboratory Tests 11/28/20 03:26 Discharge Medications Scheduled Amlodipine Besylate (Amlodipine Besylate) 10 Mg Tablet, 1 TAB PO DAILY Aspirin (Aspirin EC) 81 Mg Tablet.dr, 81 MG PO DAILY, (Reported) Atorvastatin Calcium (Atorvastatin Calcium) 40 Mg Tablet, 40 MG PO DAILY, (Reported) Budesonide/Formoterol (Symbicort 160-4.5 Mcg Inhaler) 60 Puff/Inhaler Aers, 2 P UFF INH BID, (Reported) Docusate Sodium (Docusate Sodium) 100 Mg Capsule, 100 MG PO DAILY, (Reported) Fenofibrate (Fenofibrate) 160 Mg Tab, 160 MG PO DAILY, (Reported) Fluticasone Propionate (Flonase Allergy Relief) 9.9 Ml [place].susp, 1 SPRAY NA DAILY, (Reported) Furosemide (Furosemide) 20 Mg Tablet, 40 MG PO DAILY Levothyroxine Sodium (Levothyroxine Sodium) 150 Mcg Tablet, 150 MCG PO DAILY, (Reported) Montelukast Sodium (Montelukast Sodium) 10 Mg Tablet, 10 MG PO DAILY, (Reported) Prednisone (Prednisone) 10 Mg Tablet, 10 MG PO TAPER Take 4 tabs daily x 3 days, then 3 tabs daily x 3 days, then 2 tabs daily x 3 days, then 1 tab daily x 3 days and stop Umeclidinium [place] (Incruse Ellipta) 62.5 Mcg Blst.w.dev, 1 PUFF INH DAILY, (Reported) Scheduled PRN Albuterol Sulf (Albuterol Sulfate) 2.5 Mg/3 Ml Vial.neb, 2.5 MG INH Q2H PRN for SHORTNESS OF BREATH, (Reported) Albuterol Sulfate (Proair Hfa) 8.5 Gm Hfa.aer.ad, 2 PUFF INH Q4H PRN for SHORTNESS OF BREATH, (Reported) Allergies Coded Allergies: Contrast Media (Verified Allergy, Unknown, 10/24/14) Penicillins (Verified Allergy, Unknown, 09/04/19) Sulfa (Sulfonamide Antibiotics) (Verified Allergy, Unknown, 09/04/19) red dye (Verified Allergy, Unknown, 09/04/19) Danna Butler MD Nov 28, 2020 10:13
[2020-11-28] MEDS: FLUTICASONE PROP 0.05% NASAL SPRAY 16 GM (FLONASE) SCH (11:15)
[2020-11-28] MEDS ORDERED: methylPREDNISolone 40MG 1ML VIAL IV SCH (12:00)
--- NOTE | 2020-11-28 20:40 | ECHO ---
ECHOCARDIOGRAM DATE OF PROCEDURE: 11/26/2020 Age: 75 Gender: Female Height: 66 inches Weight: 91 kg REFERRING PHYSICIAN: Dr. Anika Jones INDICATION: Dyspnea unspecified MEASUREMENTS: 2D Measurements: Left atrium 3.3 cm Left ventricle diastole 5.0 cm Interventricular septum 1.18 cm Posterior wall 1.23 cm Aortic root 3.0 cm Aortic annulus 2.0 cm Doppler Measurements: Moderate aortic stenosis No aortic regurgitation Aortic valve velocity 334 cm/sec Peak aortic valve gradient 45 mmHg Mean aortic valve gradient 25 mmHg Aortic valve VTI 60.5 cm LVOT velocity 69.2 cm/sec No mitral regurgitation No mitral stenosis Trace tricuspid regurgitation No pulmonic regurgitation Pulmonary artery acceleration time 87 msec MITRAL ANNULAR TISSUE DOPPLER: E prime septal 6.6 cm/sec E prime lateral 10.9 cm/sec DESCRIPTION: Rhythm was predominantly sinus tachycardia. Imaging quality was fair. The study was performed supine. No pericardial effusion. This was a 2D, M-mode, color flow Doppler and pulse wave Doppler examination including mitral annular tissue Doppler. CONCLUSIONS: 1. Degenerative, calcific aortic valve disease of a 3-cusp aortic valve with moderate aortic stenosis. No aortic regurgitation. 2. Moderate mitral annular calcification. No mitral stenosis or regurgitation. 3. Borderline concentric left ventricular hypertrophy. Normal regional LV wall motion and wall thickening. Normal LV systolic function. LVEF 65% by visual estimate. LV diastolic function indeterminate. 4. Suggestive of mild-moderate elevation of pulmonary artery systolic pressure. Normal right ventricle size and systolic function. 5. No pericardial effusion. 4. Presence of endocardiac rhythm management leads in the right side of the heart.
== END 2020-11-28 17:42 | disposition home health service (06) | DRG 189 ==
LOC: M ED 15:25 → EDBD 15:25 → M ED INP 20:39 → M PCU 22:45
PROVIDERS: ADMIT Family Medicine; ATTEND Internal Medicine Nephrology
DX: J96.01 Acute respiratory failure with hypoxia (principal); J44.1 Chronic obstructive pulmonary disease with (acute) exacerbation; N17.9 Acute kidney failure, unspecified; E87.2 Acidosis; E87.3 Alkalosis; J45.31 Mild persistent asthma with (acute) exacerbation; I11.0 Hypertensive heart disease with heart failure; J96.02 Acute respiratory failure with hypercapnia; I25.10 Atherosclerotic heart disease of native coronary artery without angina pectoris; I44.1 Atrioventricular block, second degree; Z95.0 Presence of cardiac pacemaker; I50.9 Heart failure, unspecified; Z95.1 Presence of aortocoronary bypass graft; Z79.52 Long term (current) use of systemic steroids; Z20.822 Contact with and (suspected) exposure to COVID-19; K44.9 Diaphragmatic hernia without obstruction or gangrene; Z79.82 Long term (current) use of aspirin; Z96.652 Presence of left artificial knee joint; Z79.899 Other long term (current) drug therapy; Z88.0 Allergy status to penicillin; Z88.2 Allergy status to sulfonamides; Z91.041 Radiographic dye allergy status; Z91.048 Other nonmedicinal substance allergy status; I35.0 Nonrheumatic aortic (valve) stenosis; E78.5 Hyperlipidemia, unspecified; E03.9 Hypothyroidism, unspecified; G47.30 Sleep apnea, unspecified; Z96.641 Presence of right artificial hip joint

== ENCOUNTER → 2020-12-17 | Outpatient (REF) | payer MEDICARE ==
[~2020-12-17] MED LIST changes: +ALBU83IN INH; +AMLO1TAB25 PO; +ASPI-161 PO; +DOCU100C16 PO; +FURO20TA2 PO; +INCR1INH INH; +PRED10TA2 PO
[2020-12-17 14:17] LABS: CALCIUM LEVEL 8.8 MG/DL (8.8-10.2); CREATININE FOR GFR 0.98 MG/DL (0.55-1.30); GLOMERULAR FILTRATION RATE 58.7 (>39); POTASSIUM SERUM 4.5 MEQ/L (3.5-5.1)
== END ==
LOC: M LABDRWAD 13:03
PROVIDERS: ATTEND Family Medicine
DX: I10 Essential (primary) hypertension (principal)

== ENCOUNTER 2020-12-29 10:48 | Inpatient (IN) | payer MEDICARE ==
[~2020-12-29] VITALS: Ht 157.5 cm; Wt 87.1 kg
[~2020-12-29 10:48] MED LIST changes: -FLON1SPR; +FLON1SPR NARES
--- NOTE | 2020-12-29 11:55 | REP ---
INDICATION: DYSPNEA/COUGH. COMPARISON: Comparison chest x-ray November 25, 2020. TECHNIQUE: Portable upright AP chest radiograph. FINDINGS: Patient is status post median sternotomy. A bipolar pacemaker is seen in the right heart view of the left side as before. Moderate cardiac enlargement is observed unchanged. There is linear pleuroparenchymal fibrosis in the left base. No pleural effusion is seen. Pulmonary vasculature is cephalized. No infiltrate is seen. There are osteoarthritic changes in the shoulders bilaterally. IMPRESSION: Cardiomegaly with cephalization. Pleuroparenchymal chronic changes left base. No acute infiltrate. <Electronically signed by Glenn Montoya > 12/29/20 [id number]
[2020-12-29 12:08] LABS: VENOUS BASE EXCESS 8.4 (-2.0-2.0); VENOUS HCO3 37.3 MEQ/L (23.0-27.0); VENOUS PARTIAL PRESSURE CO2 72.8 mmHg (38.0-50.0); VENOUS PARTIAL PRESSURE O2 29.3 mmHg (30.0-50.0); VENOUS PH 7.327 UNITS (7.330-7.430); VENOUS TOTAL CO2 39.5 MEQ/L (24.0-28.0)
[2020-12-29 12:19] LABS: BASO # 0.1 10^3/uL (0.0-0.2); BASO % 0.8 % (0.0-1.0); EOS # 0.3 10^3/uL (0.0-0.5); EOS % 3.2 % (0.0-3.0); HEMATOCRIT 39.2 % (36.0-47.0); HEMOGLOBIN 12.9 g/dl (12.0-15.5); LYMPH # 0.7 10^3/uL (1.5-5.0); LYMPH % 7.7 % (24.0-44.0); MEAN CORPUSCULAR HEMOGLOBIN 29.6 pg (27.0-33.0); MEAN CORPUSCULAR HGB CONC 32.9 g/dl (32.0-36.5); MEAN CORPUSCULAR VOLUME 89.9 fl (80.0-96.0); MONO # 0.9 10^3/uL (0.0-0.8); MONO % 9.4 % (2.0-8.0); NEUTROPHILS # 7.5 10^3/uL (1.5-8.5); PLATELET COUNT, AUTOMATED 415 10^3/uL (150-450); RED BLOOD COUNT 4.36 10^6/uL (4.00-5.40); WHITE BLOOD COUNT 9.6 10^3/uL (4.0-10.0)
[2020-12-29] MEDS: COMBIVENT RESPIMAT 100-20MCG INHALER 4GM INH SCH ×3 (12:53→13:44)
[2020-12-29 12:55] LABS: ALBUMIN 3.2 GM/DL (3.2-5.2); ALT/SGPT 20 U/L (12-78); BILIRUBIN,DIRECT 0.2 MG/DL (0.0-0.2); BILIRUBIN,TOTAL 0.4 MG/DL (0.2-1.0); BLOOD UREA NITROGEN 17 MG/DL (7-18); CALCIUM LEVEL 8.6 MG/DL (8.8-10.2); CARBON DIOXIDE LEVEL 38 MEQ/L (21-32); CHLORIDE LEVEL 89 MEQ/L (98-107); CK-MB VALUE MASS 3.6 NG/ML (<3.6); CPK CREATINE PHOSPHOKINASE 85 U/L (26-192); CREATININE FOR GFR 1.02 MG/DL (0.55-1.30); GLOMERULAR FILTRATION RATE 56.1 (>39); GLUCOSE, FASTING 90 MG/DL (70-100); MB/CK RELATIVE INDEX 4.24 (< OR =4); NT-PRO BNP 3842 PG/ML (<450); SODIUM LEVEL 130 MEQ/L (136-145); THYROXINE (T4) 12.1 UG/DL (4.5-12.0); TOTAL PROTEIN 6.3 GM/DL (6.4-8.2); TROPONIN I < 0.02 NG/ML (< 0.10)
--- NOTE | 2020-12-29 14:19 | REP ---
INDICATION: sob COMPARISON: None TECHNIQUE: Axial noncontrast images from the thoracic inlet to the upper abdomen with coronal and sagittal reformations. This CT examination was performed using the following dose reduction techniques: Automated exposure control, adjustment of mA and/or kv according to the patient's size, and use of iterative reconstruction technique. FINDINGS: There is evidence for cardiomegaly along with advanced atherosclerotic changes to the thoracic aorta and coronary arteries as well as evidence for prior sternotomy and pacemaker placement. The lung jones demonstrate prominent pulmonary vasculature along with cephalization as well as mild bibasilar atelectasis and subtle areas of interstitial prominence and early ground-glass opacities. No effusion. No pneumothorax. Tracheobronchial tree is relatively patent. IMPRESSION: Chronic appearing changes. Superimposed early pulmonary interstitial edema along with mild basilar atelectasis cannot be excluded. Differential diagnosis less likely includes an early interstitial pneumonitis. <Electronically signed by Wale Castaneda > 12/29/20 [id number]
[2020-12-29 15:18] VITALS: O2SAT 90
[2020-12-29] MEDS ORDERED: FUROSEMIDE 40MG/4ML VIAL (J1940) IV ONE (15:30)
--- NOTE | 2020-12-29 16:10 | HPEPDOC ---
[facility] Medical History & Physical Date of Admission Dec 29, 2020 Date of Service: Dec 29, 2020 History and Physical CHIEF COMPLAINT: " Short of breath" HISTORY OF PRESENT ILLNESS: 75-year-old female with past medical history of COPD (on 2 L nasal cannula at home), coronary artery disease status post CABG, second-degree AV block (status post pacemaker), and congestive heart failure presented to the emergency department with complaints of shortness of breath. She has been having progressive shortness of breath for the last 2 days. It is worse with ambulation and she felt her 2 L nasal cannula was not helping. She reports having a productive cough, postnasal drip, sinus pressure, coryza, and watery eyes in the last 1 to 2 days. She reports compliance with her COPD and CHF medications. She denied chest pain, palpitations, abdominal pain, nausea, vomiting, problem with urination or bowel movements. She denies sick contacts and recent travel. PAST MEDICAL HISTORY: Aortic stenosis CABG 07/2006 Hypertension Hyperlipidemia Hypothyroidism Sleep apnea Asthma, mild, persistent Mobitz type 2 second degree heart block s/p pacemaker placement PAST SURGICAL HISTORY: Appendectomy 1979 Right hip placement 1985 Mastoid surgery 1968 Ear surgery at age 22 Back surgery [address] Mcdonald, 2013 Pacemaker placement 10/2014 CABG 2006 and 2016 Left hip surgery August 2019 SOCIAL HISTORY: Lives at home alone. She denies smoking, drinking, use recreational drug FAMILY HISTORY: Did not endorse any family history ALLERGIES: Please see below. REVIEW OF SYSTEMS: 10 point review of system was negative except for what is noted in the HPI HOME MEDICATIONS: Please see below. PHYSICAL EXAMINATION: VITAL SIGNS: Please see below General: Lying in bed, no acute distress Head/Neck/Throat: Trachea midline, mucous membranes moist Eyes: Sclera anicteric, PERRLA Thorax: On 2 L nasal cannula, bilateral wheezes appreciated, crackles bibasilarly Cardiovascular: Normal rate, regular rhythm, normal S1, S2; no S3, S4, rubs/gallops/murmurs Abdomen: Bowel sounds present, soft/nontender/nondistended Genitourinary: No CVA tenderness, no Quiroz in place Musculoskeletal: Moving all extremities, no edema Skin: Warm, dry Neurologic: AAOx3, speech fluent and goal-directed, no focal deficits, grossly intact LABORATORY DATA: See below. IMAGING: See imaging section MICROBIOLOGY: Please see below. ASSESSMENT/PLAN: #COPD exacerbation -Suspect upper respiratory sinusitis causing exacerbation. Continue with DuoNebs, IV steroids, and azithromycin. If procalcitonin is normal will discontinue antibiotics -Continue ambulatory Singulair -Maintain oxygen saturation between 88 to 92% #CHF exacerbation -Diastolic heart failure. Echocardiogram done in 11/2020 noted normal left ventricular ejection fraction and diastolic function was indeterminate. CT scan shows possible interstitial edema. -IV furosemide x 1 and reassess in am. She has metabolic alkalosis so will need to be cautious with diuresis -Daily I's and O's and weights -Fluid restriction to 1500 cc, low-sodium diet #Hypertension -Continue with amlodipine #Coronary disease -Continue aspirin, atorvastatin, and fenofibrate #Hypothyroidism -Continue levothyroxine #DVT prophylax -heparin subq Vital Signs Vital Signs Date Time Temp Pulse Resp B/P (MAP) Pulse Ox O2 Delivery O2 Flow Rate FiO2 12/29/20 15:48 79 18 94 Nasal Cannula 2.0 12/29/20 15:15 169/90 (116) 12/29/20 11:51 97.5 Laboratory Data Labs 24H Laboratory Tests 2 12/29/20 11:53: Immature Granulocyte % (Auto) 0.9, Neutrophils (%) (Auto) 78.0H, Lymphocytes (%) (Auto) 7.7L, Monocytes (%) (Auto) 9.4H, Eosinophils (%) (Auto) 3.2H, Basophils (%) (Auto) 0.8, Neutrophils # (Auto) 7.5, Lymphocytes # (Auto) 0.7L, Monocytes # (Auto) 0.9H, Eosinophils # (Auto) 0.3, Basophils # (Auto) 0.1, Nucleated Red Blood Cells % (auto) 0.0, Blood Gas Bicarbonate Standard 31.0, Venous Blood pH 7.327L, Venous Blood Partial Pressure CO2 72.8H, Venous Blood Partial Pressure O2 29.3L, Venous Blood Total Carbon Dioxide 39.5H, Venous Blood HCO3 37.3H, Venous Blood Oxygen Saturation 50.0L, Venous Blood Base Excess 8.4H, Anion Gap 3L, Glomerular Filtration Rate 56.1, Lactic Acid Level 1.3, Calcium Level 8.6L, Total Bilirubin 0.4, Direct Bilirubin 0.2, Aspartate Amino Transf (AST/SGOT) 20, Alanine Aminotransferase (ALT/SGPT) 20, Alkaline Phosphatase 53, Total Creatine Kinase 85, Creatine Kinase MB 3.6, Creatine Kinase MB Relative Index 4.24H, Troponin I < 0.02, OD-Qiz-Q-Type Natriuretic Peptide 3842H, Total Protein 6.3L, Albumin 3.2, Albumin/Globulin Ratio 1.0L, Thyroid Stimulating Hormone (TSH) 2.070, Thyroxine (T4) 12.1H CBC/BMP Laboratory Tests 12/29/20 11:53 Microbiology Microbiology 12/29/20 Respiratory Virus Panel (PCR) (JOSELINE) - Final, Complete 12/29/20 Blood Culture, Received Pending Home Medications Scheduled Amlodipine Besylate (Amlodipine Besylate) 10 Mg Tablet, 10 MG PO DAILY Aspirin (Aspirin EC) 81 Mg Tablet.dr, 81 MG PO DAILY Atorvastatin Calcium (Atorvastatin Calcium) 40 Mg Tablet, 40 MG PO DAILY Budesonide/Formoterol (Symbicort 160-4.5 Mcg Inhaler) 60 Puff/Inhaler Aers, 2 PUFF INH BID Docusate Sodium (Docusate Sodium) 100 Mg Capsule, 100 MG PO DAILY Fenofibrate (Fenofibrate) 160 Mg Tab, 160 MG PO DAILY Fluticasone Propionate (Flonase Allergy Relief) 9.9 Ml [place].susp, 1 SPRAY NARES DAILY Furosemide (Furosemide) 20 Mg Tablet, 40 MG PO DAILY Levothyroxine Sodium (Levothyroxine Sodium) 150 Mcg Tablet, 150 MCG PO DAILY Montelukast Sodium (Montelukast Sodium) 10 Mg Tablet, 10 MG PO DAILY Umeclidinium [place] (Incruse Ellipta) 62.5 Mcg Blst.w.dev, 1 PUFF INH DAILY Scheduled PRN Acetaminophen (Acetaminophen) 325 Mg Tablet, 650 MG PO Q4H PRN for PAIN LEVEL 1- 4 Albuterol Sulf (Albuterol Sulfate) 2.5 Mg/3 Ml Vial.neb, 2.5 MG INH Q2H PRN for SHORTNESS OF BREATH Albuterol Sulfate (Proair Hfa) 8.5 Gm Hfa.aer.ad, 2 PUFF INH Q4H PRN for SHORTNESS OF BREATH Allergies Coded Allergies: Contrast Media (Verified Allergy, Unknown, 10/24/14) Penicillins (Verified Allergy, Unknown, 09/04/19) Sulfa (Sulfonamide Antibiotics) (Verified Allergy, Unknown, 09/04/19) red dye (Verified Allergy, Unknown, 09/04/19) A-FIB/CHADSVASC A-FIB History Current/History of A-Fib/PAF?: No YNES WYNN M.D. Dec 29, 2020 16:10
[2020-12-29] MEDS: methylPREDNISolone 40MG 1ML VIAL IV SCH (17:57)
[2020-12-29] MEDS ORDERED: AZITHROMYCIN 250MG TABLET PO SCH (18:00)
[2020-12-29] MEDS ORDERED: FURO20TA2 PO (18:08)
[2020-12-29] MEDS ORDERED: AMLO1TAB25 PO (18:08)
[2020-12-29] MEDS ORDERED: ACET-910 PO (18:08)
[2020-12-29] MEDS ORDERED: HOME MED LIST COMPLETE! XX SCH (18:35)
[2020-12-29 21:14] VITALS: BP 133/87
[2020-12-29] MEDS: HEPARIN SOD (PORCINE) 5000UNITS/ML 1ML VIAL/SYRINGE SQ SCH (21:55)
[2020-12-29] MEDS ORDERED: ACETAMINOPHEN TAB 650MG DOSE (2X325MG) PO PRN (23:30)
[2020-12-30] MEDS: methylPREDNISolone 40MG 1ML VIAL IV SCH ×3 (02:02→21:23)
[2020-12-30] MEDS: HEPARIN SOD (PORCINE) 5000UNITS/ML 1ML VIAL/SYRINGE SQ SCH ×3 (05:37→21:23)
[2020-12-30] MEDS: LEVOTHYROXINE 150MCG TABLET (0.15MG) PO SCH (05:37)
[2020-12-30 06:00] VITALS: BP 123/72
[2020-12-30 06:14] LABS: HEMATOCRIT 39.9 % (36.0-47.0); HEMOGLOBIN 13.2 g/dl (12.0-15.5); MEAN CORPUSCULAR HEMOGLOBIN 29.8 pg (27.0-33.0); MEAN CORPUSCULAR HGB CONC 33.1 g/dl (32.0-36.5); MEAN CORPUSCULAR VOLUME 90.1 fl (80.0-96.0); PLATELET COUNT, AUTOMATED 427 10^3/uL (150-450); RED BLOOD COUNT 4.43 10^6/uL (4.00-5.40); WHITE BLOOD COUNT 9.7 10^3/uL (4.0-10.0)
[2020-12-30 06:39] LABS: BLOOD UREA NITROGEN 19 MG/DL (7-18); CALCIUM LEVEL 8.6 MG/DL (8.8-10.2); CARBON DIOXIDE LEVEL 36 MEQ/L (21-32); CHLORIDE LEVEL 91 MEQ/L (98-107); CREATININE FOR GFR 0.94 MG/DL (0.55-1.30); GLOMERULAR FILTRATION RATE > 60.0 (>39); GLUCOSE, FASTING 159 MG/DL (70-100); MAGNESIUM LEVEL 1.9 MG/DL (1.8-2.4); PHOSPHORUS LEVEL 4.3 MG/DL (2.5-4.9); POTASSIUM SERUM 4.8 MEQ/L (3.5-5.1); SODIUM LEVEL 134 MEQ/L (136-145)
[2020-12-30] MEDS: IPRATROPIUM 0.5MG/ALBUTEROL 2.5MG INH SOL UD 3ML (DUONEB) NEB SCH ×6 (07:59→23:19)
[2020-12-30] MEDS ORDERED: FLUBLOK(EGG FREE)(QUAD)INFLUENZA VACC 0.5ML SYRINGE 18YRS & OLDER IM ONE (09:00)
[2020-12-30] MEDS: ASPIRIN 81MG ENTERIC TABLET PO SCH (09:12)
[2020-12-30] MEDS: MONTELUKAST 10 MG TAB PO SCH (09:12)
[2020-12-30] MEDS: ATORVASTATIN 20 MG TAB PO SCH (09:14)
[2020-12-30] MEDS: DOCUSATE SODIUM 100MG CAPSULE PO SCH (09:14)
[2020-12-30 14:00] VITALS: BP 132/77
[2020-12-30] MEDS: guaiFENesin SYRUP 200 MG/10 ML UDC PO PRN ×2 (15:25→21:26)
[2020-12-30 22:00] VITALS: BP 127/72
[2020-12-31] MEDS: IPRATROPIUM 0.5MG/ALBUTEROL 2.5MG INH SOL UD 3ML (DUONEB) NEB SCH ×3 (03:19→11:56)
[2020-12-31] MEDS: LEVOTHYROXINE 150MCG TABLET (0.15MG) PO SCH (05:33)
[2020-12-31] MEDS: HEPARIN SOD (PORCINE) 5000UNITS/ML 1ML VIAL/SYRINGE SQ SCH (05:33)
[2020-12-31 06:00] VITALS: BP 134/73
--- NOTE | 2020-12-31 07:27 | ECGEPIP ---
[facility] - ED Test Date: 2020-12-29 Pat Name: FESTUS MORGAN Department: Room: - Gender: Female Behavioral Specialist: : [id number] Requested By: Rina Gatica Order Number: [id number] Reading MD: Rina Gatica Measurements Intervals [place] Rate: 80 P: 20 GA: 254 QRS: 91 QRSD: 166 T: 1 QT: 450 QTc: 519 Interpretive Statements Sinus rhythm with 1st degree AV block with occasional premature ventricular complexes and fusion complexes Right bundle branch block prolonged qtc increased ectopy 11/25/20 Electronically Signed on 12-31-2020 7:27:03 EDT by Rina Gatica
[2020-12-31] MEDS: methylPREDNISolone 40MG 1ML VIAL IV SCH (08:29)
[2020-12-31] MEDS: ASPIRIN 81MG ENTERIC TABLET PO SCH (08:29)
[2020-12-31] MEDS: DOCUSATE SODIUM 100MG CAPSULE PO SCH (08:30)
[2020-12-31] MEDS: MONTELUKAST 10 MG TAB PO SCH (08:30)
[2020-12-31] MEDS: ATORVASTATIN 20 MG TAB PO SCH (08:30)
[2020-12-31 08:33] VITALS: BP 129/72
[2020-12-31 09:40] LABS: CALCIUM LEVEL 8.9 MG/DL (8.8-10.2); CREATININE FOR GFR 1.15 MG/DL (0.55-1.30); GLOMERULAR FILTRATION RATE 48.8 (>39); PHOSPHORUS LEVEL 3.9 MG/DL (2.5-4.9)
--- NOTE | 2020-12-31 11:43 | DS.PDOC ---
Discharge Summary General Date of Admission Dec 29, 2020 at 16:10 Date of Discharge 12/31/20 Discharge Summary DISCHARGE DIAGNOSES: 1. COPD exacerbation 2. CHF exacerbation 3. Chronic respiratory failure COMPLICATIONS/CHIEF COMPLAINT: COPD. HOSPITAL COURSE: Ms. Smyth, is a 75-year-old female with a past medical history of COPD (on 2 L nasal cannula at home), coronary artery disease status post CABG, second-degree AV block (status post pacemaker), and congestive heart failure who presented to the emergency department at [facility] with complaints of shortness of breath on 12/29/2020. She also had symptoms consistent with sinusitis. She suspected to have a COPD as well as CHF exacerbation causing her symptoms. Her COPD was treated with duo nebs and IV steroids; and her CHF was treated with IV diuretics. On 12/31 she had significant improvement in her symptoms. She was asked to increase her oxygen to 3 L at home and to monitor her oxygen saturations, with the goal of being between 88 to 92%. She reported having a pulse ox and understood these instructions. She is encouraged to follow-up with her primary [facility] for ongoing management of her COPD. She was evaluated by physical therapy and cleared to go back home. Of note, at the time of discharge patient's labs did show findings are consistent with metabolic alkalosis, likely due to compensation from her chronic respiratory failure. Her sodium was slightly low, at 135 as well as her chloride at 94. She was asked to follow-up with her primary care physician to have repeat blood work done. Her thyroid function tests done during hospitalization noted a TSH of 2.07, her T4 was 12.1 and her free T3 was 2. She is encouraged to follow-up with her primary care physician for ongoing management of her hypothyroidism. DISCHARGE MEDICATIONS: Please see below. ALLERGIES: Please see below. PHYSICAL EXAMINATION ON DISCHARGE: VITAL SIGNS: Please see below. General: Lying in bed, no acute distress Head/Neck/Throat: Trachea midline, mucous membranes moist Eyes: Sclera anicteric, no erythema or discharge appreciated bilaterally Thorax: On 3 L nasal cannula saturating at 92 to 94%, lungs clear to aus cultation bilaterally, no wheezes appreciated Cardiovascular: Normal rate, regular rhythm, normal S1, S2; no S3, S4, rubs/gallops/murmurs Abdomen: Bowel sounds present, soft/nontender/nondistended Genitourinary: No CVA tenderness, no Quiroz in place Musculoskeletal: Moving all extremities, no edema Skin: Warm, dry Neurologic: AAOx3, speech fluent and goal-directed, no focal deficits, grossly intact LABORATORY DATA: Please see below. IMAGING: CT Chest without contrast FINDINGS: There is evidence for cardiomegaly along with advanced atherosclerotic changes to the thoracic aorta and coronary arteries as well as evidence for prior sternotomy and pacemaker placement. The lung jones demonstrate prominent pulmonary vasculature along with cephalization as well as mild bibasilar atelectasis and subtle areas of interstitial prominence and early ground-glass opacities. No effusion. No pneumothorax. Tracheobronchial tree is relatively patent. IMPRESSION: Chronic appearing changes. Superimposed early pulmonary interstitial edema along with mild basilar atelectasis cannot be excluded. Differential diagnosis less likely includes an early interstitial pneumonitis. PROGNOSIS: Good ACTIVITY: As tolerated DIET: Cardiac diet ITEMS TO FOLLOWUP ON ON OUTPATIENT: 1. Follow-up with primary care physician within 5 days 2. Follow-up with [facility] within 5 to 7 days DISCHARGE CONDITION: Stable TIME SPENT ON DISCHARGE: 30 minutes. Vital Signs/I&Os Vital Signs Date Time Temp Pulse Resp B/P (MAP) Pulse Ox O2 Delivery O2 Flow Rate FiO2 12/31/20 08:33 99 129/72 12/31/20 06:00 97.4 16 94 Nasal Cannula 3.0 I&O- Last 24 Hours up to 6 AM 12/31/20 06:00 Intake Total 1200 ml Output Total 800 ml Balance 400 ml Laboratory Data Labs 24H Laboratory Tests 2 12/31/20 08:50: Anion Gap 4L, Glomerular Filtration Rate 48.8, Calcium Level 8.9, Phosphorus Level 3.9, Magnesium Level 2.0 CBC/BMP Laboratory Tests 12/31/20 08:50 Microbiology Microbiology 12/29/20 Blood Culture - Preliminary, Resulted No growth after 24 hours . All specim... 12/29/20 Respiratory Virus Panel (PCR) (JOSELINE) - Final, Complete 12/29/20 Blood Culture - Preliminary, Resulted No growth after 24 hours . All specim... Discharge Medications Scheduled Amlodipine Besylate (Amlodipine Besylate) 10 Mg Tablet, 10 MG PO DAILY, (Reported) Aspirin (Aspirin EC) 81 Mg Tablet.dr, 81 MG PO DAILY, (Reported) Atorvastatin Calcium (Atorvastatin Calcium) 40 Mg Tablet, 40 MG PO DAILY, (Reported) Budesonide/Formoterol (Symbicort 160-4.5 Mcg Inhaler) 60 Puff/Inhaler Aers, 2 PUFF INH BID, (Reported) Docusate Sodium (Docusate Sodium) 100 Mg Capsule, 100 MG PO DAILY, (Reported) Fenofibrate (Fenofibrate) 160 Mg Tab, 160 MG PO DAILY, (Reported) Fluticasone Propionate (Flonase Allergy Relief) 9.9 Ml [place].susp, 1 SPRAY NARES DAILY, (Reported) Furosemide (Furosemide) 20 Mg Tablet, 40 MG PO DAILY, (Reported) Levothyroxine Sodium (Levothyroxine Sodium) 150 Mcg Tablet, 150 MCG PO DAILY, (Reported) Montelukast Sodium (Montelukast Sodium) 10 Mg Tablet, 10 MG PO DAILY, (Reported) Prednisone (Prednisone) 10 Mg Tablet, 10 MG PO TAPER Take 4 tabs daily x 3 days, then 3 tabs daily x 3 days, then 2 tabs daily x 3 days, then 1 tab daily x 3 days and stop Umeclidinium [place] (Incruse Ellipta) 62.5 Mcg Blst.w.dev, 1 PUFF INH DAILY, (Reported) Scheduled PRN Acetaminophen (Acetaminophen) 325 Mg Tablet, 650 MG PO Q4H PRN for PAIN LEVEL 1- 4, (Reported) Albuterol Sulf (Albuterol Sulfate) 2.5 Mg/3 Ml Vial.neb, 2.5 MG INH Q2H PRN for SHORTNESS OF BREATH, (Reported) Albuterol Sulfate (Proair Hfa) 8.5 Gm Hfa.aer.ad, 2 PUFF INH Q4H PRN for SHORTNESS OF BREATH, (Reported) Allergies Coded Allergies: Contrast Media (Verified Allergy, Unknown, 10/24/14) Penicillins (Verified Allergy, Unknown, 09/04/19) Sulfa (Sulfonamide Antibiotics) (Verified Allergy, Unknown, 09/04/19) red dye (Verified Allergy, Unknown, 09/04/19) YNES WYNN M.D. Dec 31, 2020 11:42
[2020-12-31] MEDS ORDERED: PRED10TA2 PO (11:45)
[2020-12-31] MEDS: guaiFENesin SYRUP 200 MG/10 ML UDC PO PRN (12:40)
== END 2020-12-31 13:54 | disposition home health service (06) | DRG 190 ==
LOC: M ED 10:48 → M ED INP 16:10 → ENRESERV 19:51 → M MSPAV 21:15
PROVIDERS: ADMIT Internal Medicine; ATTEND Internal Medicine
DX: J44.1 Chronic obstructive pulmonary disease with (acute) exacerbation (principal); I50.33 Acute on chronic diastolic (congestive) heart failure; J96.10 Chronic respiratory failure, unspecified whether with hypoxia or hypercapnia; E87.3 Alkalosis; I11.0 Hypertensive heart disease with heart failure; I25.10 Atherosclerotic heart disease of native coronary artery without angina pectoris; E03.9 Hypothyroidism, unspecified; E78.5 Hyperlipidemia, unspecified; J45.30 Mild persistent asthma, uncomplicated; I44.1 Atrioventricular block, second degree; Z95.0 Presence of cardiac pacemaker; G47.30 Sleep apnea, unspecified; I35.0 Nonrheumatic aortic (valve) stenosis; Z95.1 Presence of aortocoronary bypass graft; Z96.641 Presence of right artificial hip joint; Z96.652 Presence of left artificial knee joint; Z99.81 Dependence on supplemental oxygen; Z79.82 Long term (current) use of aspirin; Z79.899 Other long term (current) drug therapy; Z88.0 Allergy status to penicillin; Z88.2 Allergy status to sulfonamides; Z91.041 Radiographic dye allergy status; Z91.048 Other nonmedicinal substance allergy status

== ENCOUNTER → 2021-06-11 | Outpatient (REF) | payer MEDICARE ==
[~2021-06-11] MED LIST changes: +ACET-910 PO; -MONT10TA10 PO; +MONT10TA97 PO
[2021-06-11 15:09] LABS: HEMATOCRIT 41.6 % (36.0-47.0); HEMOGLOBIN 13.6 g/dl (12.0-15.5); MEAN CORPUSCULAR HEMOGLOBIN 30.1 pg (27.0-33.0); MEAN CORPUSCULAR HGB CONC 32.7 g/dl (32.0-36.5); PLATELET COUNT, AUTOMATED 430 10^3/uL (150-450); RED BLOOD COUNT 4.52 10^6/uL (4.00-5.40); WHITE BLOOD COUNT 8.7 10^3/uL (4.0-10.0)
[2021-06-11 15:17] LABS: ALBUMIN 3.7 GM/DL (3.2-5.2); BILIRUBIN,TOTAL 0.5 MG/DL (0.2-1.0); CHOLESTEROL RISK RATIO 2.847 (<5); CREATININE FOR GFR 1.01 MG/DL (0.55-1.30); GLOMERULAR FILTRATION RATE 56.6 (>39); MAGNESIUM LEVEL 1.8 MG/DL (1.8-2.4); POTASSIUM SERUM 4.5 MEQ/L (3.5-5.1); TOTAL PROTEIN 6.8 GM/DL (6.4-8.2)
== END ==
LOC: M LABDRWAD 14:53
PROVIDERS: ATTEND Physician Assistant
DX: I25.10 Atherosclerotic heart disease of native coronary artery without angina pectoris (principal); I50.32 Chronic diastolic (congestive) heart failure; E78.2 Mixed hyperlipidemia; E83.42 Hypomagnesemia

== ENCOUNTER → 2021-07-08 | Outpatient (CLI) | payer MEDICARE ==
[~2021-07-08] MED LIST changes: +ISOVUE-300 61% 50ML VIAL As Ordered ONE; +LIDOCAINE 1% MDV 20ML VIAL As Ordered ONE; +TRIAMCINOLONE ACETONIDE SUSP 40 MG/ML VIAL (J3301) As Ordered ONE
== END ==
LOC: M RADPRO 14:01
PROVIDERS: ATTEND Physician Assistant
DX: M19.012 Primary osteoarthritis, left shoulder (principal)
CPT/HCPCS: 20610; 77002; J3301; Q9967

== ENCOUNTER → 2021-12-23 | Outpatient (CLI) | payer MEDICARE ==
[~2021-12-23] MED LIST changes: +ALBU2.5V10 INH; -ALBU83IN INH; +ROPIvacaine 0.5% 30ML INJECTION (J2795 PER 1MG) As Ordered ONE
== END ==
LOC: M RAD 15:24
PROVIDERS: ATTEND Orthopaedic Surgery
DX: M19.012 Primary osteoarthritis, left shoulder (principal)
CPT/HCPCS: 20610; 76000; J2795; J3301; Q9967

== ENCOUNTER → 2022-06-08 | Outpatient (REF) | payer MEDICARE ==
[~2022-06-08] MED LIST changes: -ISOVUE-300 61% 50ML VIAL As Ordered ONE; -LIDOCAINE 1% MDV 20ML VIAL As Ordered ONE; -ROPIvacaine 0.5% 30ML INJECTION (J2795 PER 1MG) As Ordered ONE; -TRIAMCINOLONE ACETONIDE SUSP 40 MG/ML VIAL (J3301) As Ordered ONE
[2022-06-08 14:02] LABS: HEMATOCRIT 42.5 % (36.0-47.0); HEMOGLOBIN 13.4 g/dl (12.0-15.5); MEAN CORPUSCULAR HGB CONC 31.5 g/dl (32.0-36.5); MEAN CORPUSCULAR VOLUME 95.1 fl (80.0-96.0); PLATELET COUNT, AUTOMATED 399 10^3/uL (150-450); RED BLOOD COUNT 4.47 10^6/uL (4.00-5.40); WHITE BLOOD COUNT 8.4 10^3/uL (4.0-10.0)
[2022-06-08 14:30] LABS: BLOOD UREA NITROGEN 22 MG/DL (9-23); CALCIUM LEVEL 9.1 MG/DL (8.3-10.6); CARBON DIOXIDE LEVEL 33 MMOL/L (20-31); CHLORIDE LEVEL 97 MMOL/L (98-107); CREATININE FOR GFR 0.89 MG/DL (0.55-1.30); GLOMERULAR FILTRATION RATE > 60.0 (>39); GLUCOSE, FASTING 109 MG/DL (74-106); MAGNESIUM LEVEL 1.9 MG/DL (1.8-2.4); POTASSIUM SERUM 5.3 MMOL/L (3.5-5.1); SODIUM LEVEL 138 MMOL/L (136-145)
== END ==
LOC: M LABDRWAD 12:57
PROVIDERS: ATTEND Physician Assistant
DX: I50.32 Chronic diastolic (congestive) heart failure (principal); E83.42 Hypomagnesemia; I25.10 Atherosclerotic heart disease of native coronary artery without angina pectoris

== ENCOUNTER → 2022-06-08 | Outpatient (REF) | payer MEDICARE ==
[2022-06-08 14:33] LABS: FREE T3 2.4 PG/ML (2.3-4.2); THYROID STIMULATING HORMONE 0.685 uIU/ML (0.55-4.78)
[2022-06-08 14:35] LABS: FREE T4 1.42 NG/DL (0.89-1.76)
== END ==
LOC: M LABDRWAD 12:59
PROVIDERS: ATTEND Family Medicine
DX: E03.9 Hypothyroidism, unspecified (principal); I50.32 Chronic diastolic (congestive) heart failure; E83.42 Hypomagnesemia; I25.10 Atherosclerotic heart disease of native coronary artery without angina pectoris

== ENCOUNTER → 2022-07-07 | Outpatient (REF) | payer MEDICARE | LOC: M LABDRWAD 15:53 | PROVIDERS: ATTEND Physician Assistant | DX: I50.32 Chronic diastolic (congestive) heart failure (principal); E87.5 Hyperkalemia ==

== ENCOUNTER 2023-03-06 17:42 | Inpatient (IN) | payer MEDICARE ==
[~2023-03-06] VITALS: Ht 160 cm; Wt 76.0 kg
[2023-03-06 19:04] LABS: HEMATOCRIT 38.3 % (36.0-47.0); HEMOGLOBIN 12.5 g/dl (12.0-15.5); MEAN CORPUSCULAR HEMOGLOBIN 28.9 pg (27.0-33.0); MEAN CORPUSCULAR HGB CONC 32.6 g/dl (32.0-36.5); MEAN CORPUSCULAR VOLUME 88.7 fl (80.0-96.0); PLATELET COUNT, AUTOMATED 410 10^3/uL (150-450); RED BLOOD COUNT 4.32 10^6/uL (4.00-5.40); WHITE BLOOD COUNT 17.3 10^3/uL (4.0-10.0)
[2023-03-06 19:29] LABS: CK-MB VALUE MASS < 1.0 NG/ML (<3.6)
[2023-03-06 19:30] LABS: ATYPICAL LYMPH 2 % (0-5); EOSINOPHILS 4 % (0-3); LYMPHOCYTES 8 % (16-44); MONOCYTES 5 % (0-5); NEUTROPHILS 81 % (28-66); PLATELET ESTIMATE NORMAL (NORMAL)
[2023-03-06 19:31] LABS: ALBUMIN 3.3 G/DL (3.2-5.2); ALKALINE PHOSPHATASE 50 U/L (46-116); ALT/SGPT 13 U/L (7.0-40); AST/SGOT 16 U/L (<34); BILIRUBIN,DIRECT < 0.1 MG/DL (<0.4); BILIRUBIN,TOTAL 0.5 MG/DL (0.3-1.2); BLOOD UREA NITROGEN 26 MG/DL (9-23); CALCIUM LEVEL 8.5 MG/DL (8.3-10.6); CARBON DIOXIDE LEVEL 32 MMOL/L (20-31); CHLORIDE LEVEL 101 MMOL/L (98-107); CPK CREATINE PHOSPHOKINASE 32 U/L (34-145); CREATININE FOR GFR 0.93 MG/DL (0.55-1.30); GLOMERULAR FILTRATION RATE > 60.0 (>39); GLUCOSE, FASTING 117 MG/DL (74-106); MB/CK RELATIVE INDEX 3.12 (< OR =4); POTASSIUM SERUM 4.4 MMOL/L (3.5-5.1); SODIUM LEVEL 139 MMOL/L (136-145)
[2023-03-06 19:33] LABS: THYROID STIMULATING HORMONE 1.246 uIU/ML (0.55-4.78)
[2023-03-06] MEDS ORDERED: methylPREDNISolone 125MG 2ML VIAL IV ONE (19:40)
[2023-03-06] MEDS ORDERED: diphenhydrAMINE 50MG/ML VIAL IV ONE (19:40)
[2023-03-06] MEDS: IPRATROPIUM 0.5MG/ALBUTEROL 2.5MG INH SOL UD 3ML (DUONEB) NEB SCH ×3 (20:00→22:32)
[2023-03-06] MEDS ORDERED: ISOVUE-370 76% 100ML VIAL As Ordered ONE (20:08)
[2023-03-06 20:18] LABS: PROCALCITONIN 0.06 ng/ml
[2023-03-06] MEDS ORDERED: LEVALBUTEROL HFA 45MCG/ACT 15GM INHALER INH PRN (23:20)
[2023-03-06] MEDS ORDERED: ALBU8.5H INH (23:54)
[2023-03-06] MEDS ORDERED: OMEP40CA5 PO (23:54)
[2023-03-06] MEDS ORDERED: HOME MED LIST COMPLETE! XX SCH (23:55)
[2023-03-07] VITALS (7 sets, daily range): BP systolic 112–152; BP diastolic 59–85; TEMP 96–98; O2SAT 92–99
[2023-03-07] MEDS: MAG SULF 1GM/100ML (MAG RUN) 1 GM in IV 1 EA IV SCH ×2 (00:08→01:25)
[2023-03-07 01:16] LABS: VENOUS BASE EXCESS 4.5 (-2.0-2.0); VENOUS HCO3 29.9 MMOL/L (23.0-27.0); VENOUS O2 SATURATION 98.3 % (60.0-80.0); VENOUS PARTIAL PRESSURE CO2 47.6 mmHg (38.0-50.0); VENOUS PH 7.416 UNITS (7.330-7.430); VENOUS STANDARD HCO3 28.5 MMOL/L; VENOUS TOTAL CO2 31.4 MMOL/L (24.0-28.0)
[2023-03-07] MEDS: ACETAMINOPHEN TAB 650MG DOSE (2X325MG) PO PRN ×3 (01:43→23:51)
[2023-03-07] MEDS: LEVALBUTEROL HFA 45MCG/ACT 15GM INHALER INH SCH ×4 (01:45→18:18)
[2023-03-07] MEDS: IPRATROPIUM 0.02% SOLN 0.5MG 2.5ML NEB INH SCH ×4 (01:45→18:17)
[2023-03-07 06:37] LABS: HEMATOCRIT 37.2 % (36.0-47.0); MEAN CORPUSCULAR HEMOGLOBIN 28.4 pg (27.0-33.0); MEAN CORPUSCULAR HGB CONC 32.3 g/dl (32.0-36.5); MEAN CORPUSCULAR VOLUME 87.9 fl (80.0-96.0); PLATELET COUNT, AUTOMATED 387 10^3/uL (150-450); RED BLOOD COUNT 4.23 10^6/uL (4.00-5.40); WHITE BLOOD COUNT 14.8 10^3/uL (4.0-10.0)
[2023-03-07 07:04] LABS: ALKALINE PHOSPHATASE 47 U/L (46-116); ALT/SGPT 14 U/L (7.0-40); AST/SGOT 12 U/L (<34); BILIRUBIN,TOTAL 0.4 MG/DL (0.3-1.2); BLOOD UREA NITROGEN 25 MG/DL (9-23); CALCIUM LEVEL 8.4 MG/DL (8.3-10.6); CARBON DIOXIDE LEVEL 32 MMOL/L (20-31); CHLORIDE LEVEL 99 MMOL/L (98-107); CREATININE FOR GFR 0.91 MG/DL (0.55-1.30); GLOMERULAR FILTRATION RATE > 60.0 (>39); GLUCOSE, FASTING 184 MG/DL (74-106); MAGNESIUM LEVEL 2.6 MG/DL (1.8-2.4); POTASSIUM SERUM 4.8 MMOL/L (3.5-5.1); SODIUM LEVEL 137 MMOL/L (136-145); TOTAL PROTEIN 5.7 G/DL (5.7-8.2)
[2023-03-07] MEDS: predniSONE 20 MG TAB PO SCH (08:29)
[2023-03-07] MEDS: ENOXAPARIN 40MG/0.4ML SYRINGE (J1650 PER 10MG) SC SCH (08:30)
[2023-03-07 15:42] LABS: INR 1.1; PROTHROMBIN TIME 13.9 SECONDS (12.5-14.5)
[2023-03-08] VITALS (11 sets, daily range): BP systolic 116–140; BP diastolic 55–81; TEMP 96.2–98.3; O2SAT 92–97
[2023-03-08] MEDS: LEVALBUTEROL HFA 45MCG/ACT 15GM INHALER INH SCH ×4 (02:05→19:10)
[2023-03-08] MEDS: IPRATROPIUM 0.02% SOLN 0.5MG 2.5ML NEB INH SCH ×4 (02:05→19:10)
[2023-03-08] MEDS: LEVOTHYROXINE 150MCG TABLET (0.15MG) PO SCH (05:52)
[2023-03-08] MEDS: SYMBICORT 160/4.5MCG INHALER 6GM INH SCH ×2 (07:54→19:10)
[2023-03-08] MEDS: predniSONE 20 MG TAB PO SCH (08:48)
[2023-03-08] MEDS: ATORVASTATIN 20 MG TAB PO SCH (08:48)
[2023-03-08] MEDS: ASPIRIN 81MG ENTERIC TABLET PO SCH (08:48)
[2023-03-08] MEDS: FLUTICASONE PROP 0.05% NASAL SPRAY 16 GM (FLONASE) NARES SCH (08:49)
[2023-03-08] MEDS: OMEPRAZOLE 20MG CAP PO SCH (08:49)
[2023-03-08] MEDS: MONTELUKAST 10 MG TAB PO SCH (08:49)
[2023-03-08] MEDS: FUROSEMIDE 40 MG TAB PO SCH (08:49)
[2023-03-08] MEDS: FENOFIBRATE 145MG TABLET (TRICOR) PO SCH (08:51)
[2023-03-08] MEDS ORDERED: LIDOCAINE 1% MDV 20ML VIAL As Ordered ONE (14:40)
[2023-03-08] MEDS: ACETAMINOPHEN TAB 650MG DOSE (2X325MG) PO PRN (20:49)
[2023-03-09] MEDS: LEVALBUTEROL HFA 45MCG/ACT 15GM INHALER INH SCH ×3 (01:36→14:54)
[2023-03-09] MEDS: IPRATROPIUM 0.02% SOLN 0.5MG 2.5ML NEB INH SCH ×3 (01:36→14:54)
[2023-03-09 03:45] VITALS: BP 125/75; TEMP 96.1; O2SAT 97
[2023-03-09] MEDS: LEVOTHYROXINE 150MCG TABLET (0.15MG) PO SCH (05:43)
[2023-03-09 05:46] LABS: HEMATOCRIT 36.3 % (36.0-47.0); HEMOGLOBIN 11.6 g/dl (12.0-15.5); MEAN CORPUSCULAR HEMOGLOBIN 28.7 pg (27.0-33.0); MEAN CORPUSCULAR VOLUME 89.9 fl (80.0-96.0); PLATELET COUNT, AUTOMATED 447 10^3/uL (150-450); RED BLOOD COUNT 4.04 10^6/uL (4.00-5.40); WHITE BLOOD COUNT 10.5 10^3/uL (4.0-10.0)
[2023-03-09 05:57] LABS: CALCIUM LEVEL 8.4 MG/DL (8.3-10.6); CREATININE FOR GFR 1.22 MG/DL (0.55-1.30); GLOMERULAR FILTRATION RATE 45.4 (>39); POTASSIUM SERUM 4.7 MMOL/L (3.5-5.1)
[2023-03-09 07:27] VITALS: BP 126/78; TEMP 97.5; O2SAT 96
[2023-03-09] MEDS: SYMBICORT 160/4.5MCG INHALER 6GM INH SCH (08:29)
[2023-03-09] MEDS: FUROSEMIDE 40 MG TAB PO SCH (10:13)
[2023-03-09] MEDS: ENOXAPARIN 40MG/0.4ML SYRINGE (J1650 PER 10MG) SC SCH (10:13)
[2023-03-09] MEDS: FENOFIBRATE 145MG TABLET (TRICOR) PO SCH (10:14)
[2023-03-09] MEDS: MONTELUKAST 10 MG TAB PO SCH (10:14)
[2023-03-09] MEDS: FLUTICASONE PROP 0.05% NASAL SPRAY 16 GM (FLONASE) NARES SCH (10:14)
[2023-03-09] MEDS: ATORVASTATIN 20 MG TAB PO SCH (10:14)
[2023-03-09] MEDS: predniSONE 20 MG TAB PO SCH (10:14)
[2023-03-09] MEDS: OMEPRAZOLE 20MG CAP PO SCH (10:14)
[2023-03-09] MEDS: ASPIRIN 81MG ENTERIC TABLET PO SCH (10:14)
[2023-03-09 12:00] VITALS: BP 121/68; TEMP 97.1; O2SAT 97
[2023-03-09] MEDS ORDERED: FLUZONE HIGH DOSE(65YR UP)QUAD/PF 240MCG/0.7ML SYRINGE IM.IMMUN ONE (12:00)
[2023-03-09] MEDS ORDERED: PRED5TA PO (14:48)
[2023-03-09 15:00] VITALS: BP 141/65; TEMP 97.6; O2SAT 95
== END 2023-03-09 16:20 | disposition home or self-care (01) | DRG 181 ==
LOC: EDBD 17:42 → M ED 17:42 → M ED INP 22:57 → M PCU 03-07 00:32
PROVIDERS: ADMIT Internal Medicine; ATTEND Internal Medicine
PROC: 0FB23ZX Excision of Left Lobe Liver, Percutaneous Approach, Diagnostic (ICD-10-PCS; principal; 2023-03-08 14:00)
DX: C34.02 Malignant neoplasm of left main bronchus (principal); J96.11 Chronic respiratory failure with hypoxia; C78.7 Secondary malignant neoplasm of liver and intrahepatic bile duct; J98.11 Atelectasis; J44.1 Chronic obstructive pulmonary disease with (acute) exacerbation; J44.0 Chronic obstructive pulmonary disease with (acute) lower respiratory infection; I25.10 Atherosclerotic heart disease of native coronary artery without angina pectoris; I44.1 Atrioventricular block, second degree; J20.8 Acute bronchitis due to other specified organisms; R59.0 Localized enlarged lymph nodes; I35.0 Nonrheumatic aortic (valve) stenosis; Z66 Do not resuscitate; I70.0 Atherosclerosis of aorta; E03.9 Hypothyroidism, unspecified; I11.0 Hypertensive heart disease with heart failure; I50.9 Heart failure, unspecified; E78.5 Hyperlipidemia, unspecified; Z87.891 Personal history of nicotine dependence; Z99.81 Dependence on supplemental oxygen; Z79.82 Long term (current) use of aspirin; Z95.1 Presence of aortocoronary bypass graft; Z95.0 Presence of cardiac pacemaker; Z79.890 Hormone replacement therapy; Z79.899 Other long term (current) drug therapy; Z88.0 Allergy status to penicillin; Z88.2 Allergy status to sulfonamides; Z91.041 Radiographic dye allergy status; Z96.643 Presence of artificial hip joint, bilateral; Z91.048 Other nonmedicinal substance allergy status

== ENCOUNTER 2023-03-15 10:53 | Outpatient (RCR) | payer MEDICARE ==
[~2023-03-15 10:53] MED LIST changes: +ALBU8.5H INH; +OMEP40CA5 PO; +PRED5TA PO
== END 2023-04-02 ==
PROVIDERS: ATTEND General Practice
DX: Z51.0 Encounter for antineoplastic radiation therapy (principal); C34.32 Malignant neoplasm of lower lobe, left bronchus or lung